=== PATIENT | male | born 1930 | race Caucasian/White ===

== ENCOUNTER 2017-02-02 07:31 | Inpatient (IN) | payer MEDICARE, BC ==
[~2017-02-02 07:31] MED LIST: Bupivacaine 0.5% 50 ML MDV ONE; Lidocaine 1% with EPINEPHrine 1:100,000 50 ML MDV ONE
[2017-02-02] MEDS ORDERED: ceFAZolin 2 GM in Premix Bag 1 BAG IV ONE (08:00)
[2017-02-02] MEDS ORDERED: fentaNYL 100 MCG/2 ML SDV ONE (08:46)
[2017-02-02] MEDS ORDERED: Midazolam 1 MG/ML 2 ML SDV ONE (08:46)
[2017-02-02] MEDS ORDERED: Propofol 200 MG/20 ML SDV ONE (08:46)
[2017-02-02] MEDS: Dextrose 5%-Lactated Ringers 1,000 ML IV SCH (08:51)
[2017-02-02] MEDS ORDERED: Ketorolac 60 MG/2 ML SDV ONE (09:55)
[2017-02-02] MEDS ORDERED: HYDROmorphone 2 MG Tab PO PRN (11:37)
[2017-02-02] MEDS ORDERED: Ondansetron 4 MG/2 ML SDV IVPUSH PRN (11:38)
[2017-02-02] MEDS ORDERED: Glucagon,Human Recombinant 1 MG Vial IM PRN (11:44)
[2017-02-02] MEDS ORDERED: 50% Dextrose in Water 50 ML Syringe IVPUSH PRN (11:44)
[2017-02-02] MEDS ORDERED: Glucose Gel 15 GM in 37.5 GM Tube PO PRN (11:44)
[2017-02-02] MEDS: traMADol 50 MG Tab PO SCH ×2 (13:53→19:41)
[2017-02-02] MEDS: Acetaminophen 325 MG Tab PO SCH ×2 (13:53→19:32)
[2017-02-02] MEDS: Oxybutynin 5 MG Tab PO SCH ×2 (13:53→21:00)
[2017-02-02] MEDS: Magnesium Sulfate/Water 2 GM in Premix Bag 1 BAG IV SCH ×2 (13:53→19:32)
[2017-02-02] MEDS: ceFAZolin 2 GM in Sodium Chloride 0.9% 50 ML IV SCH ×2 (16:09→23:36)
[2017-02-02] MEDS: Insulin Aspart 100 Units/ML 3 ML Pen SUBCUT PRN ×2 (16:22→21:01)
[2017-02-02] MEDS: Sucralfate 1 GM Tab PO SCH ×2 (16:24→19:32)
[2017-02-02] MEDS: metFORMIN 500 MG Tab PO SCH (16:24)
[2017-02-03] MEDS: traMADol 50 MG Tab PO SCH ×4 (01:44→20:13)
[2017-02-03] MEDS: Acetaminophen 325 MG Tab PO SCH ×4 (01:44→20:13)
[2017-02-03] MEDS: Magnesium Sulfate/Water 2 GM in Premix Bag 1 BAG IV SCH ×4 (01:45→20:14)
[2017-02-03] MEDS: ceFAZolin 2 GM in Sodium Chloride 0.9% 50 ML IV SCH (07:58)
[2017-02-03] MEDS: Pantoprazole 40 MG Tab.CR PO SCH (07:59)
[2017-02-03] MEDS: Sucralfate 1 GM Tab PO SCH ×4 (07:59→20:13)
[2017-02-03] MEDS: metFORMIN 500 MG Tab PO SCH ×2 (07:59→16:19)
[2017-02-03] MEDS ORDERED: Potassium Phosphates 15 MMOLE in Sodium Chloride 0.9% 150 ML IV SCH (09:00)
[2017-02-03] MEDS: Oxybutynin 5 MG Tab PO SCH ×3 (09:33→20:16)
[2017-02-03] MEDS: Mometasone Furoate Nasal Spray 17 GM Canister NASBOTH SCH (09:33)
[2017-02-03] MEDS: Enoxaparin 40 MG/0.4 ML Syringe SUBCUT SCH (09:33)
[2017-02-03] MEDS: Spironolactone 25 MG Tab PO SCH (09:33)
[2017-02-03] MEDS: Clopidogrel 75 MG Tab PO SCH (09:34)
[2017-02-03] MEDS: amLODIPine 5 MG Tab PO SCH (09:34)
[2017-02-03] MEDS: Potassium Phosphates 15 MMOLE in Sodium Chloride 0.9% 150 ML IV SCH ×3 (11:08→18:17)
[2017-02-03] MEDS: Insulin Aspart 100 Units/ML 3 ML Pen SUBCUT PRN (21:50)
[2017-02-03] MEDS ORDERED: Tamsulosin 0.4 MG Cap.ER PO ONE (21:58)
[2017-02-03] MEDS ORDERED: Lidocaine 2% Jelly 10 ML Urojet MUCMEM ONE (22:02)
[2017-02-04] MEDS: Magnesium Sulfate/Water 2 GM in Premix Bag 1 BAG IV SCH ×3 (01:52→13:46)
[2017-02-04] MEDS: traMADol 50 MG Tab PO SCH ×4 (01:52→19:32)
[2017-02-04] MEDS: Acetaminophen 325 MG Tab PO SCH ×4 (01:52→19:32)
[2017-02-04] MEDS: Dextrose 5%-Lactated Ringers 1,000 ML IV SCH (07:58)
[2017-02-04] MEDS: Pantoprazole 40 MG Tab.CR PO SCH (07:59)
[2017-02-04] MEDS: Sucralfate 1 GM Tab PO SCH ×4 (07:59→19:33)
[2017-02-04] MEDS: metFORMIN 500 MG Tab PO SCH ×2 (08:04→17:28)
[2017-02-04] MEDS: Spironolactone 25 MG Tab PO SCH (08:07)
[2017-02-04] MEDS: Mometasone Furoate Nasal Spray 17 GM Canister NASBOTH SCH (08:08)
[2017-02-04] MEDS: Tamsulosin 0.4 MG Cap.ER PO SCH ×2 (08:08→21:22)
[2017-02-04] MEDS: Clopidogrel 75 MG Tab PO SCH (08:09)
[2017-02-04] MEDS: amLODIPine 5 MG Tab PO SCH (08:09)
[2017-02-04] MEDS: Enoxaparin 40 MG/0.4 ML Syringe SUBCUT SCH (08:16)
--- NOTE | 2017-02-04 08:42 | PN ---
DATE OF SERVICE: 02/04/2017 The patient has been afebrile with stable vital signs. Blood sugar control has been good. The main problem was that of urinary retention. He is not able to avoid more than few milliliters at a time, and bladder scan showed a large residual postvoid volume. Ball catheter was inserted with around 600 mL of urine being retrieved, and the patient was given Flomax 0.4 mg last night. We will repeat that dose this morning as well as tonight and try getting the Ball out tomorrow morning. He does have a history of prostatism, having undergone a TURP in the past. Otherwise, he is eating reasonably well, and will maximize activity and work with pulmonary toilet. The incision looks clean. Richard Ordonez MD /[id number]
[2017-02-04] MEDS: Insulin Aspart 100 Units/ML 3 ML Pen SUBCUT PRN ×2 (17:20→21:27)
[2017-02-05] MEDS: Acetaminophen 325 MG Tab PO SCH ×4 (02:55→20:06)
[2017-02-05] MEDS: traMADol 50 MG Tab PO SCH ×4 (02:56→20:08)
[2017-02-05] MEDS ORDERED: Furosemide 20 MG Tab PO ONE (06:41)
[2017-02-05] MEDS ORDERED: Furosemide 40 MG Tab PO ONE (06:46)
[2017-02-05] MEDS ORDERED: Tamsulosin 0.4 MG Cap.ER PO ONE (06:47)
[2017-02-05] MEDS: Sucralfate 1 GM Tab PO SCH ×4 (07:23→20:07)
[2017-02-05] MEDS: Pantoprazole 40 MG Tab.CR PO SCH (07:23)
[2017-02-05] MEDS: metFORMIN 500 MG Tab PO SCH ×2 (08:03→17:08)
[2017-02-05] MEDS: Spironolactone 25 MG Tab PO SCH (08:04)
[2017-02-05] MEDS: amLODIPine 5 MG Tab PO SCH (08:05)
[2017-02-05] MEDS: Mometasone Furoate Nasal Spray 17 GM Canister NASBOTH SCH (08:05)
[2017-02-05] MEDS: Enoxaparin 40 MG/0.4 ML Syringe SUBCUT SCH (08:05)
[2017-02-05] MEDS: Clopidogrel 75 MG Tab PO SCH (08:06)
[2017-02-05] MEDS: Insulin Aspart 100 Units/ML 3 ML Pen SUBCUT PRN (08:19)
--- NOTE | 2017-02-05 08:27 | PN ---
DATE OF SERVICE: 02/03/2017 The patient has been afebrile with stable vital signs. He has been up and voiding fairly well. He is still requiring some more assistance. It might be good for him to be going home with. We will work on increasing mobility today. Potassium and phosphate are both markedly low. We will supplement those. Continue supplementing the potassium, which was quite low on admission. Iv will go to keep open today, and maximize activity and work with pulmonary toilet. Richard Ordonez MD /[id number]
--- NOTE | 2017-02-05 08:43 | OR ---
DATE OF PROCEDURE: 02/02/2017 PREOPERATIVE DIAGNOSIS: Recurrent right inguinal hernia with probable associated neuropathic pain. POSTOPERATIVE DIAGNOSES: 1. Recurrent incarcerated right inguinal hernia. 2. Incarcerated right femoral hernia. 3. 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 OPERATIVE PROCEDURE: 1. Repair of recurrent incarcerated right inguinal hernia with mesh (33425). 2. Repair of incarcerated right femoral hernia (15900). 3. Division of right ilioinguinal nerve (11640). 4. Division of genital branch of right genitofemoral nerve (83174). ANESTHESIA: Local plus IV sedation. CRAFT MANAGER: Patti Spence PA-C. INDICATIONS FOR PROCEDURE: This is an 86-year-old presenting with some episodes of quite severe pain associated with right inguinal area. On examination, the patient emerged to have a recurrence of right inguinal hernia. By history, there is some quite frivolous suggestive of some nerve entrapment problems he had previously repaired in the early 1960s and has some pain radiating to the right side of the scrotum as well as uppermost thigh suggestive of some nerve entrapment related to the previous repair. Plan will be to proceed with inguinal exploration of the right side with repair of hernias as indicated and we will also attempt to identify and divide the right ilioinguinal nerve and genital branch of genitofemoral nerves. Potential risks of the procedure including bleeding, infection, recurrence of the hernia, possible persistent pain postoperatively along with the remote possibility of cardiopulmonary, septic, or hemorrhagic complications leading to were discussed, and the patient wishes to proceed. DETAILS OF PROCEDURE: The patient was taken to the operating room where after IV sedation was administered, the abdomen and groin areas were prepped and draped. The right inguinal area was anesthetized with 1% lidocaine and mixed with Marcaine. Most of the previous quite long incision was then used over the right inguinal area. This was carried down through the skin and subcutaneous tissue. Upon dissection into the area the patient had cord structures placed in a position above the external oblique aponeurosis. As one dissected further, the patient was noted to have an indirect hernia which was incarcerated with some preperitoneal fat. Further dissection also revealed a femoral hernia, which also had some incarcerated fat within it. Upon dissection of the cord structures, quite a bit of dense scar was noted around the ilioinguinal nerve and also the genital branch of the genitofemoral nerve. Both those nerves were divided and excised to a point into the lateral most aspect of the incision and sent as pathologic specimens. The indirect hernia was then reduced with excision of small amount of the fat pad area. A medium plug was then placed in that defect and a [id number] stitch of 0 Vicryl stitch was placed holding the plug intact. The remainder of the inguinal floor was otherwise intact and appeared to be holding well. The femoral hernia was then reduced and a figure-of- eight stitch between the Scotty's ligament overlying the inguinal ligament was then accomplished with an 0 Vicryl stitch which appeared satisfactory and we then closed off the femoral hernia. At that point, no further problems were noted. The subcutaneous tissue was then approximated with some 4-0 Vicryl stitch and the skin with reina. Dressing was applied. The patient was taken to the recovery room in satisfactory condition. Physician administrative sales assistant, Patti Spence, played an essential role in assisting in this case, helping to retract structures as needed, positioning the patient as well as suturing and stapling when indicated. Her presence improved the patient's safety and decreased the operative time. Richard Ordonez MD /[id number]
[2017-02-06] MEDS: Acetaminophen 325 MG Tab PO SCH ×3 (02:00→08:09)
[2017-02-06] MEDS: traMADol 50 MG Tab PO SCH ×3 (02:00→08:12)
--- NOTE | 2017-02-06 03:43 | DISCH ---
ADMISSION DIAGNOSES: 1. Right inguinal hernia. 2. Atrial fibrillation. 3. Cerebral infarction. 4. Hypertension. 5. Hypercholesterolemia. 6. Diabetes mellitus. 7. Congestive heart failure. 8. Generalized weakness. 9. Transient ischemic attack. 10.Degenerative joint disease. 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 12.Benign prostatic hypertrophy, has had laser TURP. 13.Allergic rhinitis. 14.Urinary incontinence. DISCHARGE DIAGNOSIS: Repair of right inguinal hernia. Date of surgery is 02/02/2017. HISTORY: Nile Maya is an 86-year-old male with right inguinal hernia. After preoperative evaluation and discussion of possible risks and possible complications, he wished to proceed with surgical procedure. HOSPITAL COURSE: Nile had his surgery on 02/02/2017. He had no operative complications. On postop day #1, he was unable to void, a catheter was placed, and he was started on K- Phos. On 02/04/2017, he was changed to outpatient for urinary retention. Ball catheter remained and he was started on Flomax. Catheter was removed early Sunday morning at 04:00 a.m. On 02/05/2017, he has not voided yet at time of dictation. PHYSICAL EXAMINATION: VITAL SIGNS: Nile Maya is an 86-year-old male. VITAL SIGNS: Height is 5 feet 10 inches. Weight is 160 pounds. TPR 99.2, 72, 18. Blood pressure 151/70. HEENT: Negative. NECK: Supple. HEART: Regular rate and rhythm. LUNGS: Clear. ABDOMEN: Dressings dry and intact. Scrotal support is on. EXTREMITIES: Without peripheral edema. DISPOSITION: Discharged to home. CONDITION: Stable and improving. FOLLOWUP: Followup appointment with Richard Ordonez M.D. on 02/14/2017 at 9:15 a.m. MEDICATIONS: New prescriptions: 1. Flomax 0.4 mg p.o. daily #30. 2. Tramadol 50 mg q.6 hours p.r.n. pain #40. Home medications: Continue the same. 1. Plavix 75 mg oral daily. 2. Ferrous sulfate 325 mg oral daily. 3. Flonase 2 sprays in each nostril daily. 4. Nasonex spray one spray twice daily. 5. Multivitamin one tablet daily. 6. Omeprazole 40 mg oral daily. 7. Oxybutynin 5 mg oral daily. 8. Sennalax-S 2 tablets daily. 9. Spironolactone 12.5 mg oral daily. 10.Carafate 1000 mg oral 4 times daily. 11.Norvasc 5 mg oral daily. 12.Lipitor 40 mg oral one time. 13.Metformin 1000 mg oral twice daily. 14.Metronidazole 0.75% gel one topical twice daily. DIET: After discharge, drink 8 to 10 glasses of water a day. Diabetic diet. ACTIVITY: As tolerated. No lifting greater than 10 pounds for 6 weeks. Shower bathing, may shower. Notify provider if any fever, increased pain, nausea, vomiting. Wound incision care, keep site clean and dry. Wear athletic supporter until next appointment.
[2017-02-06] MEDS: Sucralfate 1 GM Tab PO SCH ×2 (08:08→11:34)
[2017-02-06] MEDS: metFORMIN 500 MG Tab PO SCH (08:09)
[2017-02-06] MEDS: Pantoprazole 40 MG Tab.CR PO SCH (08:09)
[2017-02-06] MEDS: amLODIPine 5 MG Tab PO SCH (08:24)
[2017-02-06] MEDS: Mometasone Furoate Nasal Spray 17 GM Canister NASBOTH SCH (08:25)
[2017-02-06] MEDS: Spironolactone 25 MG Tab PO SCH (08:25)
[2017-02-06] MEDS: Enoxaparin 40 MG/0.4 ML Syringe SUBCUT SCH (08:25)
[2017-02-06] MEDS: Clopidogrel 75 MG Tab PO SCH (08:26)
[2017-02-06 10:50] VITALS: BP 143/84
--- NOTE | 2017-02-07 01:40 | DISCH ---
ADDENDUM: After appropriate evaluation and discussion with Mrs. Maya, Nile will be discharged to [facility]. He is voiding. He did have a fall last night. Richard Ordonez MD was notified. Per nursing staff, there is a small skin abrasion between his shoulder blades. Remainder of review of systems negative for any pertinent positives and negatives. OBJECTIVE: GENERAL: Nile Maya is an 86-year-old male. He is alert and orientated. VITAL SIGNS: Height 5 feet 10 inches. Weight is 160 pounds. TPR 98.4, 81, 16. Blood pressure 112/51. Oral intake 880, output 750. Last BM 02/05/2017. HEENT: Negative. NECK: Supple. HEART: Regular rate and rhythm. LUNGS: Clear. ABDOMEN: Soft, nontender. Incision in the right groin area, reina intact. EXTREMITIES: Without peripheral edema. ASSESSMENT: Repair of right inguinal hernia, date of surgery 02/02/2017. PLAN: To return to the clinic for postoperative followup appointment with DYANA Ndiaye on 02/12/2017 at 10:00 a.m.
--- NOTE | 2017-03-04 17:10 | PN ---
DATE OF SERVICE: 02/05/2017 Mr. Maya had his Ball catheter pulled this morning, and we will see if he is able to void. If he is not able to void, we will reinsert the Ball catheter at that time, and he may be able to go home with the catheter in for a few days. This has happened with previous anesthetics. Otherwise, he is eating well and moving around nicely, and incision is clean. He probably will be discharged home tomorrow. Richard Ordonez MD /[id number]
== END 2017-02-06 13:10 | disposition home health service (06) | DRG 351 ==
LOC: JP.MS 07:31 → JP.SDS 07:32 → EDSTATUS 10:15 → JP.MS 10:30
PROVIDERS: ADMIT Surgery; ATTEND Surgery
PROC: 0YQ70ZZ Repair Right Femoral Region, Open Approach (ICD-10-PCS; principal; 2017-02-02)
PROC: 0YQ50ZZ Repair Right Inguinal Region, Open Approach (ICD-10-PCS; principal; 2017-02-02)
PROC: 0YU50JZ Supplement Right Inguinal Region with Synthetic Substitute, Open Approach (ICD-10-PCS; principal; 2017-02-02)
PROC: 018 Peripheral Nervous System, Division (ICD-10-PCS; principal; 2017-02-02)
PROC: 018B0ZZ Division of Lumbar Nerve, Open Approach (ICD-10-PCS; principal; 2017-02-02)
DX: K40.91 Unilateral inguinal hernia, without obstruction or gangrene, recurrent (principal); K41.30 Unilateral femoral hernia, with obstruction, without gangrene, not specified as recurrent; K40.30 Unilateral inguinal hernia, with obstruction, without gangrene, not specified as recurrent; G57.81 Other specified mononeuropathies of right lower limb; G58.8 Other specified mononeuropathies; E11.9 Type 2 diabetes mellitus without complications; Z79.84 Long term (current) use of oral hypoglycemic drugs; K21.9 Gastro-esophageal reflux disease without esophagitis; Z86.73 Personal history of transient ischemic attack (TIA), and cerebral infarction without residual deficits; J30.9 Allergic rhinitis, unspecified; E78.00 Pure hypercholesterolemia, unspecified; I10 Essential (primary) hypertension; R33.9 Retention of urine, unspecified; N40.1 Benign prostatic hyperplasia with lower urinary tract symptoms; N39.498 Other specified urinary incontinence; Z86.79 Personal history of other diseases of the circulatory system; M19.90 Unspecified osteoarthritis, unspecified site
CPT/HCPCS: 36415; 51798; 80048; 80053; 82962; 83735; 83880; 84100; 85027; 88302; 93005; 94762; A9270-GY; C1781; J0690; J1650; J1885; J2250; J2704; J3010; J3475; J3490; J7040; J7042; J7050

== ENCOUNTER 2017-08-09 15:58 | Emergency (ER) | payer MEDICARE, BC ==
[2017-08-09] MEDS ORDERED: Acetaminophen/Codeine 300-30 MG Tab PO ONE (16:58)
--- NOTE | 2017-08-09 17:00 | EDM.PDOC ---
ED HPI GENERAL MEDICAL PROBLEM - General Chief Complaint: Back Pain or Injury Stated Complaint: BACK PAIN VIA NORTH Time Seen by Provider: 08/09/17 16:45 Source of Information: Reports: Patient, EMS, Family History Limitations: Reports: No Limitations - History of Present Illness INITIAL COMMENTS - FREE TEXT/NARRATIVE: 87-year-old male with chronic back pain has had an increased exacerbation of pain over the past several days. Today he was in so much discomfort he couldn't even walk so his called the ambulance. He is very sensitive to narcotic type medications apparently, he was not given anything by EMS. Now as he is lying still on the exam table he is comfortable. No weakness or paresthesias of the lower extremities, no incontinence. No recent falls. Onset: Unknown/Unsure Quality: Reports: Burning, Sharp, Stabbing Severity: Moderate Associated Symptoms: Reports: Confusion (Tends to get confusion with pain medication). Denies: Fever/Chills - Related Data Allergies Allergy/AdvReac Type Severity Reaction Status Date / Time moxifloxacin Allergy Cannot Verified 02/02/17 08:10 Remember Home Meds: Home Meds Multivitamin [Multi-Vitamin Daily] 1 tab PO DAILY 12/04/14 [History] Oxybutynin 5 mg PO DAILY 12/04/14 [History] Sucralfate [Carafate] 1,000 mg PO QID 12/04/14 [History] metFORMIN [Glucophage] 1,000 mg PO BID 12/04/14 [History] Ferrous Sulfate [Feosol] 325 mg PO DAILY 01/31/17 [History] Fluticasone Propionate [Flonase] 2 spray NASBOTH DAILY 01/31/17 [History] Omeprazole 20 mg PO DAILY 01/31/17 [History] Spironolactone [Aldactone] 12.5 mg PO DAILY 01/31/17 [History] amLODIPine [Norvasc] 5 mg PO DAILY 01/31/17 [History] atorvaSTATin [Lipitor] 40 mg PO ONETIME 01/31/17 [History] Aspirin [Ecotrin] 1 tab PO DAILY 08/09/17 [History] Menthol/Methyl Salicylate [Pain Relieving Rub Cream] 1 applic TOP QID 08/09/17 [ History] Past Medical History HEENT History: Reports: Hard of Hearing Cardiovascular History: Reports: Afib, Arrhythmia, Heart Failure, High Cholesterol, Hypertension Gastrointestinal History: Reports: Chronic Constipation, GERD, PUD Genitourinary History: Reports: BPH Musculoskeletal History: Reports: Back Pain, Chronic, Osteoporosis, Other (See Below) Other Musculoskeletal History: shots in knees Neurological History: Reports: Concussion, Neuropathy, Peripheral, TIA Psychiatric History: Reports: Dementia Endocrine/Metabolic History: Reports: Diabetes, Type II Hematologic History: Reports: Blood Transfusion(s) Oncologic (Cancer) History: Reports: Prostate - Infectious Disease History Infectious Disease History: Reports: Chicken Pox, Measles, Mumps - Past Surgical History HEENT Surgical History: Reports: Eye Surgery GI Surgical History: Reports: Colonoscopy, Hernia Repair/Other Other GI Surgeries/Procedures: january 2017 hernia repair Male Surgical History: Reports: TURP-Transurethral Resection of Prostate, Other (See Below) Social & Family History - Tobacco Use Smoking Status *Q: Never Smoker Second Hand Smoke Exposure: No - Caffeine Use Caffeine Use: Reports: Coffee - Recreational Drug Use Recreational Drug Use: No ED ROS GENERAL - Review of Systems Review Of Systems: See Below Constitutional: Denies: Fever, Chills Respiratory: Denies: Shortness of Breath Cardiovascular: Denies: Chest Pain GI/Abdominal: Denies: Nausea, Vomiting : Reports: No Symptoms Neurological: Denies: Paresthesia ED EXAM,LOWER BACK PAIN/INJURY - Physical Exam Exam: See Below Exam Limited By: No Limitations General Appearance: Alert, No Apparent Distress Respiratory/Chest: No Respiratory Distress, Lungs Clear Back Exam: Vertebral Tenderness (Tender to percussion over the very lower lumbar spine, L3 to the sacral area). No: CVA Tenderness (R), CVA Tenderness (L ) Extremities: Normal Inspection Course - Vital Signs Last Recorded V/S: Last Vital Signs Temp 97.1 F 08/09/17 16:39 Pulse 72 08/09/17 18:00 Resp 14 08/09/17 18:00 BP 150/91 H 08/09/17 18:00 Pulse Ox 96 08/09/17 18:00 - Orders/Labs/Meds Meds: Medications Discontinued Medications Generic Name Dose Route Start Last Admin Trade Name Freq PRN Reason Stop Dose Admin Acetaminophen/Codeine Phosphate 1 tab 08/09/17 16:58 08/09/17 17:07 Tylenol With Codeine No.3 300mg/30mg PO 08/09/17 16:59 1 tab ONETIME ONE Administration - Re-Assessments/Exams Free Text/Narrative Re-Assessment/Exam: 08/09/17 18:26 Patient was given one dose of Tylenol 3, waited a half hour and then didn't LS spine series. He has some significant arthritis with spurring but no fracture. There is some L3-L4 spondylolisthesis. Patient felt much better after the Tylenol 3, he'll be discharged with 15 additional doses to take one half to one pill every 6-8 hours. A copy of his x-ray was given and [facility] if not improving satisfactorily. Departure - Departure Time of Disposition: 19:11 Disposition: Home, Self-Care 01 Condition: Fair Clinical Impression: Acute exacerbation of chronic low back pain - Discharge Information Instructions: Back Pain, Adult, [id number] Referrals: Jimy Jackman MD [Primary Care Provider] - Forms: ED Department Discharge Care Plan Goals: Try the pain medication as directed for the next several days. Recheck early next week if not improving satisfactorily, or return to the emergency room if worsening or you develop other concerns.
[2017-08-09 19:17] VITALS: BP 150/91
--- NOTE | 2017-08-10 09:17 | CR ---
Lumbar Spine 2 or 3V INDICATION: low back pain FINDINGS: Comparison 12/04/2014. 5 lumbar type vertebral bodies. Moderate degenerative disc space narro wing and endplate hypertrophic change at L2-3 and L3-4, and mild degenerative disc space narrowing at L5-S1. Mild retrolisthesis of L2 on L3 and L3 on L4. Moderate degenerative arthritis lower lumbar fa cet joints. There has been mild progression of degenerative change since prior exam.
== END 2017-08-09 19:03 | disposition home or self-care (01) ==
LOC: JP.ED 15:58
DX: G89.29 Other chronic pain (principal); M54.5 Low back pain; I11.0 Hypertensive heart disease with heart failure; I50.9 Heart failure, unspecified; E11.40 Type 2 diabetes mellitus with diabetic neuropathy, unspecified; I48.91 Unspecified atrial fibrillation; M81.0 Age-related osteoporosis without current pathological fracture; Z88.1 Allergy status to other antibiotic agents; Z79.84 Long term (current) use of oral hypoglycemic drugs; Z79.82 Long term (current) use of aspirin; Z79.899 Other long term (current) drug therapy
CPT/HCPCS: 72100; 99284; A9270; 99283

== ENCOUNTER 2018-06-17 13:55 | Inpatient (IN) | payer MEDICARE, BC ==
[2018-06-17] MEDS ORDERED: Sodium Chloride 0.9% 10 ML Syringe FLUSH PRN (15:27)
[2018-06-17] MEDS ORDERED: Lactated Ringers 1,000 ML IV SCH (15:30)
--- NOTE | 2018-06-17 15:33 | EDM.PDOC ---
ED HPI GENERAL MEDICAL PROBLEM - General Chief Complaint: General Stated Complaint: SORES BUTTOCKS,WEAKNESS/LEGS Time Seen by Provider: 06/17/18 15:14 Source of Information: Reports: Patient, Family, RN Notes Reviewed History Limitations: Reports: No Limitations - History of Present Illness INITIAL COMMENTS - FREE TEXT/NARRATIVE: 88-year-old gentleman presents to the emergency department today with increasing weakness. Patient has known history of hypertension, atrial fibrillation diabetes mellitus type 2 as well as severe torticollis, was in the [facility] rehabilitation facility in [place] discharged to home and of May. Presents today with his spouse saying he has increasing weakness difficulty ambulating and she is unable to care for him at home. He has no specific complaints Sacral Pain Score (Numeric/FACES): 5 - Related Data Allergies Allergy/AdvReac Type Severity Reaction Status Date / Time moxifloxacin Allergy Cannot Verified 02/02/17 08:10 Remember Home Meds: Home Meds Multivitamin [Multi-Vitamin Daily] 1 tab PO DAILY 12/04/14 [History] Oxybutynin 5 mg PO DAILY 12/04/14 [History] Sucralfate [Carafate] 1,000 mg PO QID 12/04/14 [History] metFORMIN [Glucophage] 1,000 mg PO BID 12/04/14 [History] Ferrous Sulfate [Feosol] 325 mg PO DAILY 01/31/17 [History] Omeprazole 20 mg PO DAILY 01/31/17 [History] Spironolactone [Aldactone] 12.5 mg PO DAILY 01/31/17 [History] amLODIPine [Norvasc] 10 mg PO DAILY 01/31/17 [History] atorvaSTATin [Lipitor] 80 mg PO ONETIME 01/31/17 [History] Aspirin [Ecotrin] 1 tab PO DAILY 08/09/17 [History] Menthol/Methyl Salicylate [Pain Relieving Rub Cream] 1 applic TOP QID 08/09/17 [ History] Acetaminophen 325 mg PO BID PRN 06/17/18 [History] Dextran 70/Hypromellose [Artificial Tears] 1 drop EYEBOTH BID 06/17/18 [History] Mometasone Furoate [Nasonex] 2 spray VESTA BID 06/17/18 [History] OLANZapine [Olanzapine] 2.5 mg PO BEDTIME 06/17/18 [History] Sennosides/Docusate Sodium [Sennosides-Docusate Sodium] 2 tab PO DAILY 06/17/18 [History] Terbinafine [LamISIL AT 1% Crm] 1 applic TOP DAILY 06/17/18 [History] Past Medical History HEENT History: Reports: Hard of Hearing Cardiovascular History: Reports: Afib, Arrhythmia, Heart Failure, High Cholesterol, Hypertension Gastrointestinal History: Reports: Chronic Constipation, GERD, PUD Genitourinary History: Reports: BPH Musculoskeletal History: Reports: Back Pain, Chronic, Osteoporosis, Other (See Below) Other Musculoskeletal History: shots in knees Neurological History: Reports: Concussion, Neuropathy, Peripheral, TIA Psychiatric History: Reports: Dementia Endocrine/Metabolic History: Reports: Diabetes, Type II Hematologic History: Reports: Blood Transfusion(s) Oncologic (Cancer) History: Reports: Prostate - Infectious Disease History Infectious Disease History: Reports: Chicken Pox, Measles, Mumps - Past Surgical History HEENT Surgical History: Reports: Eye Surgery GI Surgical History: Reports: Colonoscopy, Hernia Repair/Other Other GI Surgeries/Procedures: january 2017 hernia repair Male Surgical History: Reports: TURP-Transurethral Resection of Prostate, Other (See Below) Social & Family History - Tobacco Use Smoking Status *Q: Never Smoker - Caffeine Use Caffeine Use: Reports: Coffee - Recreational Drug Use Recreational Drug Use: No ED ROS GENERAL - Review of Systems Review Of Systems: See Below Constitutional: Reports: Weakness, Fatigue HEENT: Reports: No Symptoms Respiratory: Reports: No Symptoms Cardiovascular: Reports: No Symptoms GI/Abdominal: Reports: No Symptoms : Reports: No Symptoms Musculoskeletal: Reports: No Symptoms Skin: Reports: Wound Neurological: Reports: Difficulty Walking, Weakness Psychiatric: Reports: Hallucinations (Seeing rats in his bed) ED EXAM, GENERAL - Physical Exam Exam: See Below Free Text/Narrative:: General: Male, not in any distress, alert HEENT: head is atraumatic normocephalic, eyes pupils equal round reactive to light, sclera clear no conjunctivitis appreciated. Nose no septal deviation, nares are clear, no blood present. Mouth mucosa is moist and pink no erythema or exudate noted in soft palate, tongue is midline uvula is midline, dentition is intact. Neck: Supple no thyromegaly no tracheal deviation. Severe torticollis to the right Nodes: Cervical nodes subclavicular nodes nontender no palpable lymphadenopathy noted. Lungs: clear to auscultation bilaterally with symmetrical respirations, no adventitious noise appreciated. CV: Regular rate and rhythm S1 and S2 appreciated no murmurs rubs or gallops noted. Abdomen: Soft, nontender, no palpable masses or organomegaly appreciated, no distention no guarding bowel sounds are present, Neuro: Cranial nerves II through XII grossly intact Skin: Grade 1 and 2 decubitus ulcers are appreciated on the gluteus jose c right and left respectively Extremities: +1 pitting edema bilateral, pedal pulse is +2. Course - Vital Signs Last Recorded V/S: Last Vital Signs Temp 96.9 F 06/17/18 14:33 Pulse 45 L 06/17/18 15:49 Resp 18 06/17/18 14:33 BP 135/64 06/17/18 15:49 Pulse Ox 90 L 06/17/18 15:49 - Orders/Labs/Meds Orders: Active Orders 24 hr Category Date Time Status Peripheral IV Care [RC] . DIRECTED Care 06/17/18 15:28 Active Chest 1V Frontal [CR] Urgent Exams 06/17/18 15:27 Taken Lactated Ringers [Ringers, Lactated] 1,000 ml Med 06/17/18 15:30 Active IV ASDIRECTED Sodium Chloride 0.9% [Saline Flush] Med 06/17/18 15:27 Active 10 ml FLUSH ASDIRECTED PRN Peripheral IV Insertion Adult [OM.PC] Urgent Oth 06/17/18 15:27 Ordered Medication Orders Lactated Ringer's (Ringers, Lactated) 1,000 mls @ 500 mls/hr IV ASDIRECTED ELLIOT Last Admin: 06/17/18 15:41 Dose: 125 mls/hr Sodium Chloride (Saline Flush) 10 ml FLUSH ASDIRECTED PRN PRN Reason: Keep Vein Open Last Admin: 06/17/18 15:42 Dose: 10 ml Labs: Laboratory Tests 06/17/18 06/17/18 06/17/18 Range/Units 15:41 15:41 15:41 WBC 7.2 (4.5-11.0) K/uL RBC 3.84 L (4.30-5.90) M/uL Hgb 11.4 L (12.0-15.0) g/dL Hct 36.1 L (40.0-54.0) % MCV 94 (80-98) fL MCH 30 (27-31) pg MCHC 32 (32-36) % Plt Count 272 (150-400) K/uL Neut % (Auto) 68 H (36-66) % Lymph % (Auto) 21 L (24-44) % Wright % (Auto) 8 H (2-6) % Eos % (Auto) 3 (2-4) % Baso % (Auto) 0 (0-1) % Sodium 143 (140-148) mmol/L Potassium 4.4 (3.6-5.2) mmol/L Chloride 109 H (100-108) mmol/L Carbon Dioxide 23 (21-32) mmol/L Anion Gap 15.4 H (5.0-14.0) mmol/L BUN 30 H D (7-18) mg/dL Creatinine 2.0 H (0.8-1.3) mg/dL Est Cr Clr Drug Dosing TNP Estimated GFR (MDRD) 32 L (>60) Glucose 114 H (74-106) mg/dL Lactic Acid 3.7 H (0.4-2.0) mmol/L Calcium 9.1 D (8.5-10.1) mg/dL Total Bilirubin 0.3 D (0.2-1.0) mg/dL AST 17 (15-37) U/L ALT 29 (12-78) U/L Alkaline Phosphatase 68 (46-116) U/L Troponin I < 0.017 (0.000-0.056) ng/mL Total Protein 5.9 L (6.4-8.2) g/dL Albumin 2.8 L (3.4-5.0) g/dL Globulin 3.1 (2.3-3.5) g/dL Albumin/Globulin Ratio 0.9 L (1.2-2.2) Urine Color Urine Appearance Urine pH (4.5-8.0) Ur Specific [place] (1.008-1.030) Urine Protein (NEGATIVE) mg/dL Urine Glucose (UA) (NEGATIVE) mg/dL Urine Ketones (NEGATIVE) mg/dL Urine Occult Blood (NEGATIVE) Urine Nitrite (NEGAITVE) Urine Bilirubin (NEGATIVE) Urine Urobilinogen (NORMAL) mg/dL Ur Leukocyte Esterase (NEGATIVE) Urine RBC (0-5) Urine WBC (0-5) Ur Epithelial Cells Amorphous Sediment Urine Bacteria Urine Mucus 06/17/18 Range/Units 17:49 WBC (4.5-11.0) K/uL RBC (4.30-5.90) M/uL Hgb (12.0-15.0) g/dL Hct (40.0-54.0) % MCV (80-98) fL MCH (27-31) pg MCHC (32-36) % Plt Count (150-400) K/uL Neut % (Auto) (36-66) % Lymph % (Auto) (24-44) % Wright % (Auto) (2-6) % Eos % (Auto) (2-4) % Baso % (Auto) (0-1) % Sodium (140-148) mmol/L Potassium (3.6-5.2) mmol/L Chloride (100-108) mmol/L Carbon Dioxide (21-32) mmol/L Anion Gap (5.0-14.0) mmol/L BUN (7-18) mg/dL Creatinine (0.8-1.3) mg/dL Est Cr Clr Drug Dosing Estimated GFR (MDRD) (>60) Glucose (74-106) mg/dL Lactic Acid (0.4-2.0) mmol/L Calcium (8.5-10.1) mg/dL Total Bilirubin (0.2-1.0) mg/dL AST (15-37) U/L ALT (12-78) U/L Alkaline Phosphatase (46-116) U/L Troponin I (0.000-0.056) ng/mL Total Protein (6.4-8.2) g/dL Albumin (3.4-5.0) g/dL Globulin (2.3-3.5) g/dL Albumin/Globulin Ratio (1.2-2.2) Urine Color Yellow Urine Appearance Clear Urine pH 5.0 (4.5-8.0) Ur Specific [place] 1.020 (1.008-1.030) Urine Protein Negative (NEGATIVE) mg/dL Urine Glucose (UA) Normal (NEGATIVE) mg/dL Urine Ketones Negative (NEGATIVE) mg/dL Urine Occult Blood Negative (NEGATIVE) Urine Nitrite Negative (NEGAITVE) Urine Bilirubin Small (NEGATIVE) Urine Urobilinogen Normal (NORMAL) mg/dL Ur Leukocyte Esterase Negative (NEGATIVE) Urine RBC 0-5 (0-5) Urine WBC 0-5 (0-5) Ur Epithelial Cells Rare Amorphous Sediment Few Urine Bacteria Rare Urine Mucus Few Meds: Medications Generic Name Dose Route Start Last Admin Trade Name Freq PRN Reason Stop Dose Admin Lactated Ringer's 1,000 mls @ 500 mls/hr 06/17/18 15:30 06/17/18 15:41 Ringers, Lactated IV 125 mls/hr ASDIRECTED ELLIOT Administration Sodium Chloride 10 ml 06/17/18 15:27 06/17/18 15:42 Saline Flush FLUSH 10 ml ASDIRECTED PRN Administration Keep Vein Open Discontinued Medications Generic Name Dose Route Start Last Admin Trade Name Freq PRN Reason Stop Dose Admin Lidocaine HCl Confirm 06/17/18 17:24 Xylocaine 2% Jelly Administered 06/17/18 17:25 Dose 10 ml .ROUTE .STK-MED ONE Departure - Departure Time of Disposition: 18:14 Disposition: Admitted As Inpatient 67 Condition: Poor Clinical Impression: Weakness, Hallucinations - Discharge Information Referrals: Jimy Jackman MD [Primary Care Provider] - Forms: ED Department Discharge - My Orders Last 24 Hours: My Active Orders 06/17/18 15:27 Chest 1V Frontal [CR] Urgent Sodium Chloride 0.9% [Saline Flush] 10 ml FLUSH ASDIRECTED PRN Peripheral IV Insertion Adult [OM.PC] Urgent 06/17/18 15:28 Peripheral IV Care [RC] . DIRECTED 06/17/18 15:30 Lactated Ringers [Ringers, Lactated] 1,000 ml IV ASDIRECTED - Assessment/Plan Last 24 Hours: My Active Orders 06/17/18 15:27 Chest 1V Frontal [CR] Urgent Sodium Chloride 0.9% [Saline Flush] 10 ml FLUSH ASDIRECTED PRN Peripheral IV Insertion Adult [OM.PC] Urgent 06/17/18 15:28 Peripheral IV Care [RC] . DIRECTED 06/17/18 15:30 Lactated Ringers [Ringers, Lactated] 1,000 ml IV ASDIRECTED Plan: Assessment Acuity = acute Site and laterality = weakness complicated patient with history of dementia with hallucinations Etiology = probable underlying progressive of disease Manifestations = none Location of injury = Home Lab values = hemoglobin low 11.4 consistent normochromic anemia, creatinine elevated at 2.0 consistent chronic renal failure stage G IIIB, lactic acid elevated at 3.7 of uncertain significance, troponin was negative albumin low at 2.8 consistent hypoalbuminemia Plan Called discussed case with hospitalist on-call they agreed to come and evaluate the patient emergency department for admission This note was dictated using [employer] voice recognition software please call with any questions on syntax or grammar.
[2018-06-17] MEDS ORDERED: Lidocaine 2% Jelly 10 ML Urojet MUCMEM ONE (17:00)
[2018-06-17] MEDS ORDERED: Lidocaine 2% Jelly 10 ML Urojet ONE (17:24)
[2018-06-17] MEDS ORDERED: Ondansetron 4 MG Tab.DIS PO PRN (19:24)
[2018-06-17] MEDS ORDERED: Albuterol/Ipratropium 3.0-0.5 MG/3 ML Neb Soln NEB PRN (19:24)
[2018-06-17] MEDS ORDERED: Morphine 2 MG/ML Syringe IVPUSH PRN (19:24)
[2018-06-17] MEDS ORDERED: Albuterol 0.083% 2.5 MG/3 ML Neb Soln NEB PRN (19:24)
[2018-06-17] MEDS ORDERED: Ondansetron 4 MG/2 ML SDV IV PRN (19:24)
[2018-06-17] MEDS ORDERED: oxyCODONE 5 MG Tab PO PRN (19:24)
[2018-06-17] MEDS ORDERED: LORazepam 2 MG/ML SDV IV PRN (19:24)
[2018-06-17] MEDS ORDERED: Acetaminophen 325 MG Tab PO PRN (19:24)
[2018-06-17] MEDS ORDERED: Docusate Sodium 100 MG Cap PO PRN (19:24)
[2018-06-17] MEDS ORDERED: Bisacodyl 5 MG Tab PO PRN (19:24)
[2018-06-17] MEDS ORDERED: Melatonin 3 MG Tab PO PRN (19:24)
--- NOTE | 2018-06-17 19:48 | PCM.HP ---
H&P History of Present Illness - General Date of Service: 06/17/18 Admit Problem/Dx: Admission Diagnosis/Problem Admission Diagnosis/Problem Dementia Source of Information: Patient, Half-Way Records, Provider, RN History Limitations: Reports: No Limitations - History of Present Illness Initial Comments - Free Text/Narative: 88-year-old gentleman presents to the emergency department today with increasing weakness. Patient has known history of hypertension, atrial fibrillation diabetes mellitus type 2 as well as severe torticollis, was in the [facility] rehabilitation facility in [place] discharged to home on . Presents today with his spouse saying he has increasing weakness difficulty ambulating and she is unable to care for him at home. He has no specific complaints Lab values = hemoglobin low 11.4 consistent normochromic anemia, creatinine elevated at 2.0 consistent chronic renal failure stage G IIIB, lactic acid elevated at 3.7 of uncertain significance, troponin was negative albumin low at 2.8 consistent hypoalbuminemia Plan Called discussed case with hospitalist on-call they agreed to come and evaluate the patient emergency department for admission Onset of Symptoms: Reports: Gradual Duration of Symptoms: Reports: Week(s):, Getting Worse Location: Reports: Generalized (weakness, able to stand and take two steps) Improves with: Reports: Rest Worsens with: Reports: None Associated Symptoms: Reports: Confusion (chronic, history of demenia wiht hallucination), Weakness Sacral Pain Score (Numeric/FACES): 5 - Related Data Allergies/Adverse Reactions: Allergies Allergy/AdvReac Type Severity Reaction Status Date / Time moxifloxacin Allergy Cannot Verified 02/02/17 08:10 Remember Home Medications: Home Meds Multivitamin [Multi-Vitamin Daily] 1 tab PO DAILY 12/04/14 [History] Oxybutynin 5 mg PO DAILY 12/04/14 [History] Sucralfate [Carafate] 1,000 mg PO QID 12/04/14 [History] metFORMIN [Glucophage] 1,000 mg PO BID 12/04/14 [History] Ferrous Sulfate [Feosol] 325 mg PO DAILY 01/31/17 [History] Omeprazole 20 mg PO DAILY 01/31/17 [History] Spironolactone [Aldactone] 12.5 mg PO DAILY 01/31/17 [History] amLODIPine [Norvasc] 10 mg PO DAILY 01/31/17 [History] atorvaSTATin [Lipitor] 80 mg PO ONETIME 01/31/17 [History] Aspirin [Ecotrin] 1 tab PO DAILY 08/09/17 [History] Menthol/Methyl Salicylate [Pain Relieving Rub Cream] 1 applic TOP QID 08/09/17 [ History] Acetaminophen 325 mg PO BID PRN 06/17/18 [History] Dextran 70/Hypromellose [Artificial Tears] 1 drop EYEBOTH BID 06/17/18 [History] Mometasone Furoate [Nasonex] 2 spray VESTA BID 06/17/18 [History] OLANZapine [Olanzapine] 2.5 mg PO BEDTIME 06/17/18 [History] Sennosides/Docusate Sodium [Sennosides-Docusate Sodium] 2 tab PO DAILY 06/17/18 [History] Terbinafine [LamISIL AT 1% Crm] 1 applic TOP DAILY 06/17/18 [History] Past Medical History HEENT History: Reports: Hard of Hearing Cardiovascular History: Reports: Afib, Arrhythmia, Heart Failure, High Cholesterol, Hypertension Gastrointestinal History: Reports: Chronic Constipation, GERD, PUD Genitourinary History: Reports: BPH Musculoskeletal History: Reports: Back Pain, Chronic, Osteoporosis, Other (See Below) Other Musculoskeletal History: shots in knees Neurological History: Reports: Concussion, Neuropathy, Peripheral, TIA Psychiatric History: Reports: Dementia Endocrine/Metabolic History: Reports: Diabetes, Type II Hematologic History: Reports: Blood Transfusion(s) Oncologic (Cancer) History: Reports: Prostate - Infectious Disease History Infectious Disease History: Reports: Chicken Pox, Measles, Mumps - Past Surgical History HEENT Surgical History: Reports: Eye Surgery GI Surgical History: Reports: Colonoscopy, Hernia Repair/Other Other GI Surgeries/Procedures: january 2017 hernia repair Male Surgical History: Reports: TURP-Transurethral Resection of Prostate, Other (See Below) Social & Family History - Tobacco Use Smoking Status *Q: Never Smoker - Caffeine Use Caffeine Use: Reports: Coffee - Recreational Drug Use Recreational Drug Use: No - Living Situation & Occupation Living situation: Reports: Occupation: Retired (lives with in [place], [place].) H&P Review of Systems - Review of Systems: Review Of Systems: See Below General: Reports: Weakness, Fatigue HEENT: Reports: Glasses, Other (natural teeth with partial) Pulmonary: Reports: No Symptoms Cardiovascular: Reports: No Symptoms Gastrointestinal: Reports: No Symptoms, Other (last bowel movement 2 days ago) Genitourinary: Reports: Incontinence (mcclendon cath) Musculoskeletal: Reports: No Symptoms Skin: Reports: Other (fragil skin, dermatitis to scalp, Mr. Maya reports skin sore on buttocks.) Psychiatric: Reports: Hallucinations (Visual) (reports "rats crawling on his skin" hx of [place] [employer], exposed to rats on skin) Neurological: Reports: Pre-Existing Deficit, Difficulty Walking (able to stand and take two steps), Weakness Hematologic/Lymphatic: Reports: No Symptoms Immunologic: Reports: No Symptoms Exam - Exam Exam: See Below - Vital Signs Vital Signs: Last Vital Signs Temp 36.1 C 06/17/18 14:33 Pulse 45 L 06/17/18 15:49 Resp 18 06/17/18 14:33 BP 135/64 06/17/18 15:49 Pulse Ox 90 L 06/17/18 15:49 Weight: 83.007 kg - Exam Quality Assessment: Urinary Catheter, Skin Breakdown General: Alert, Cooperative HEENT: PERRLA, Conjunctiva Clear, EOMI, Hearing Intact, Pupils Equal, Glasses, Other (mouth dry) Neck: Other (severe kyphoscoliosis) Lungs: Clear to Auscultation, Decreased Breath Sounds Cardiovascular: Irregular Rhythm GI/Abdominal Exam: Normal Bowel Sounds, Soft, Non-Tender, No Distention (Male) Exam: No Hernia, Normal Inspection Extremities: Pedal Edema (1+), Slow Capillary Refill, Limited Range of Motion, Other (bilateral lower legs cool to touch, Mr. Maya reports "poor circulation ") Skin: Warm, Dry, Rash, Decubitis (right and left buttocks, applied duoderm foam pad) Neurological: Normal Speech, Normal Tone Neuro Extensive - Mental Status: Alert, Normal Mood/Affect Neuro Extensive - Motor, Sensory, Reflexes: Motor/Sensory Deficits Psychiatric: Alert, Normal Affect, Normal Mood - Patient Data Lab Results Last 24 hrs: Laboratory Results - last 24 hr 06/17/18 06/17/18 06/17/18 Range/Units 15:41 15:41 15:41 WBC 7.2 (4.5-11.0) K/uL RBC 3.84 L (4.30-5.90) M/uL Hgb 11.4 L (12.0-15.0) g/dL Hct 36.1 L (40.0-54.0) % MCV 94 (80-98) fL MCH 30 (27-31) pg MCHC 32 (32-36) % Plt Count 272 (150-400) K/uL Neut % (Auto) 68 H (36-66) % Lymph % (Auto) 21 L (24-44) % [place] % (Auto) 8 H (2-6) % Eos % (Auto) 3 (2-4) % Baso % (Auto) 0 (0-1) % Sodium 143 (140-148) mmol/L Potassium 4.4 (3.6-5.2) mmol/L Chloride 109 H (100-108) mmol/L Carbon Dioxide 23 (21-32) mmol/L Anion Gap 15.4 H (5.0-14.0) mmol/L BUN 30 H D (7-18) mg/dL Creatinine 2.0 H (0.8-1.3) mg/dL Est Cr Clr Drug Dosing TNP Estimated GFR (MDRD) 32 L (>60) Glucose 114 H (74-106) mg/dL Lactic Acid 3.7 H (0.4-2.0) mmol/L Calcium 9.1 D (8.5-10.1) mg/dL Total Bilirubin 0.3 D (0.2-1.0) mg/dL AST 17 (15-37) U/L ALT 29 (12-78) U/L Alkaline Phosphatase 68 (46-116) U/L Troponin I < 0.017 (0.000-0.056) ng/mL Total Protein 5.9 L (6.4-8.2) g/dL Albumin 2.8 L (3.4-5.0) g/dL Globulin 3.1 (2.3-3.5) g/dL Albumin/Globulin Ratio 0.9 L (1.2-2.2) Amylase (25-115) U/L Lipase (73-393) U/L Urine Color Urine Appearance Urine pH (4.5-8.0) Ur Specific [place] (1.008-1.030) Urine Protein (NEGATIVE) mg/dL Urine Glucose (UA) (NEGATIVE) mg/dL Urine Ketones (NEGATIVE) mg/dL Urine Occult Blood (NEGATIVE) Urine Nitrite (NEGAITVE) Urine Bilirubin (NEGATIVE) Urine Urobilinogen (NORMAL) mg/dL Ur Leukocyte Esterase (NEGATIVE) Urine RBC (0-5) Urine WBC (0-5) Ur Epithelial Cells Amorphous Sediment Urine Bacteria Urine Mucus 06/17/18 06/17/18 Range/Units 17:49 18:50 WBC (4.5-11.0) K/uL RBC (4.30-5.90) M/uL Hgb (12.0-15.0) g/dL Hct (40.0-54.0) % MCV (80-98) fL MCH (27-31) pg MCHC (32-36) % Plt Count (150-400) K/uL Neut % (Auto) (36-66) % Lymph % (Auto) (24-44) % [place] % (Auto) (2-6) % Eos % (Auto) (2-4) % Baso % (Auto) (0-1) % Sodium (140-148) mmol/L Potassium (3.6-5.2) mmol/L Chloride (100-108) mmol/L Carbon Dioxide (21-32) mmol/L Anion Gap (5.0-14.0) mmol/L BUN (7-18) mg/dL Creatinine (0.8-1.3) mg/dL Est Cr Clr Drug Dosing Estimated GFR (MDRD) (>60) Glucose (74-106) mg/dL Lactic Acid (0.4-2.0) mmol/L Calcium (8.5-10.1) mg/dL Total Bilirubin (0.2-1.0) mg/dL AST (15-37) U/L ALT (12-78) U/L Alkaline Phosphatase (46-116) U/L Troponin I (0.000-0.056) ng/mL Total Protein (6.4-8.2) g/dL Albumin (3.4-5.0) g/dL Globulin (2.3-3.5) g/dL Albumin/Globulin Ratio (1.2-2.2) Amylase 54 (25-115) U/L Lipase 58 L (73-393) U/L Urine Color Yellow Urine Appearance Clear Urine pH 5.0 (4.5-8.0) Ur Specific [place] 1.020 (1.008-1.030) Urine Protein Negative (NEGATIVE) mg/dL Urine Glucose (UA) Normal (NEGATIVE) mg/dL Urine Ketones Negative (NEGATIVE) mg/dL Urine Occult Blood Negative (NEGATIVE) Urine Nitrite Negative (NEGAITVE) Urine Bilirubin Small (NEGATIVE) Urine Urobilinogen Normal (NORMAL) mg/dL Ur Leukocyte Esterase Negative (NEGATIVE) Urine RBC 0-5 (0-5) Urine WBC 0-5 (0-5) Ur Epithelial Cells Rare Amorphous Sediment Few Urine Bacteria Rare Urine Mucus Few Result Diagrams: 06/17/18 15:41 06/17/18 15:41 - Problem List (1) Dementia SNOMED Code(s): 12436688 ICD Code: F03.90 - UNSPECIFIED DEMENTIA WITHOUT BEHAVIORAL DISTURBANCE Status: Acute Priority: High Current Visit: Yes Qualifiers: Dementia behavioral disturbance: with behavioral disturbance (2) Hallucinations SNOMED Code(s): 7653194 ICD Code: R44.3 - HALLUCINATIONS, UNSPECIFIED Status: Acute Priority: High Current Visit: Yes (3) Weakness SNOMED Code(s): 75388360 ICD Code: R53.1 - WEAKNESS Status: Acute Priority: High Current Visit: Yes (4) Diabetes type 2, controlled SNOMED Code(s): 96275677 ICD Code: E11.9 - TYPE 2 DIABETES MELLITUS WITHOUT COMPLICATIONS Status: Acute Priority: Medium Current Visit: Yes Qualifiers: Diabetes mellitus burr filer insulin use: without burr filer use Diabetes mellitus complication detail: with diabetic retinopathy (5) Chronic kidney disease, stage 3 SNOMED Code(s): 685267800 ICD Code: N18.3 - CHRONIC KIDNEY DISEASE, STAGE 3 (MODERATE) Status: Acute Priority: High Current Visit: Yes Problem List Initiated/Reviewed/Updated: Yes Orders Last 24hrs: Active Orders 24 hr Category Date Time Status Patient Status [ADT] Routine ADT 06/17/18 19:24 Active Blood Glucose Check, Bedside [RC] BIDMEALS Care 06/17/18 19:24 Active Cardiac Monitoring [RC] CONTINUOUS Care 06/17/18 19:24 Active Intake and Output [RC] QSHIFT Care 06/17/18 19:24 Active Notify Provider Vital Signs [RC] ASDIRECTED Care 06/17/18 19:24 Active Oxygen Therapy [RC] PRN Care 06/17/18 19:24 Active Peripheral IV Care [RC] . DIRECTED Care 06/17/18 15:28 Active Pulse Oximetry [RC] PRN Care 06/17/18 19:24 Active RT Aerosol Therapy [RC] ASDIRECTED Care 06/17/18 19:24 Active Up With Assistance [RC] ASDIRECTED Care 06/17/18 19:24 Active VTE/DVT Education [RC] Per Unit Routine Care 06/17/18 19:24 Active Vital Signs [RC] Q4H Care 06/17/18 19:24 Active Regular Diet [DIET] Diet 06/17/18 Dinner Active Chest 1V Frontal [CR] Urgent Exams 06/17/18 15:27 Taken BASIC METABOLIC PANEL,BMP [CHEM] AM Lab 06/18/18 05:11 Ordered CBC WITH AUTO DIFF [HEME] AM Lab 06/18/18 05:11 Ordered Acetaminophen [Tylenol] Med 06/17/18 19:24 Active 650 mg PO Q4H PRN Albuterol [Proventil Neb Soln] Med 06/17/18 19:24 Active 2.5 mg NEB Q4H PRN Albuterol/Ipratropium [DuoNeb 3.0-0.5 MG/3 ML] Med 06/17/18 19:24 Active 3 ml NEB QID PRN Bisacodyl [Dulcolax] Med 06/17/18 19:24 Active 5 mg PO DAILY PRN Dextran 70/Hypromellose [Artificial Tears] Med 06/17/18 21:00 Active 1 drop EYEBOTH BID Docusate Sodium [Colace] Med 06/17/18 19:24 Active 100 mg PO BID PRN Docusate Sodium/Sennosides [Senna Plus] Med 06/18/18 09:00 Active 2 tab PO DAILY Enoxaparin [Lovenox] Med 06/18/18 09:00 Active 30 mg SUBCUT DAILY LORazepam [Ativan] Med 06/17/18 19:24 Active 1 mg IV Q6H PRN Lactated Ringers [Ringers, Lactated] 1,000 ml Med 06/17/18 15:30 Active IV ASDIRECTED Lactated Ringers [Ringers, Lactated] 1,000 ml Med 06/17/18 19:24 Active IV ASDIRECTED Melatonin Med 06/17/18 19:24 Active 6 mg PO BEDTIME PRN Menthol/Methyl Salicylate [Pain Relieving Rub Cream] Med 06/17/18 22:00 Active 1 applic TOP QID Morphine Med 06/17/18 19:24 Active 2 mg IVPUSH Q2H PRN OLANZapine [Olanzapine] Med 06/17/18 21:00 Active 2.5 mg PO BEDTIME Ondansetron [Zofran ODT] Med 06/17/18 19:24 Active 4 mg PO Q6H PRN Ondansetron [Zofran] Med 06/17/18 19:24 Active 4 mg IV Q4H PRN Pantoprazole [ProTONIX IV] Med 06/18/18 09:00 Active 40 mg IVPUSH DAILY Spironolactone [Aldactone] Med 06/18/18 09:00 Active 12.5 mg PO DAILY Sucralfate [Carafate] Med 06/17/18 22:00 Active 1 gm PO QID Terbinafine [LamISIL AT 1% Crm] Med 06/18/18 09:00 Active 1 applic TOP DAILY amLODIPine [Norvasc] Med 06/18/18 09:00 Active 10 mg PO DAILY oxyCODONE Med 06/17/18 19:24 Active 5 mg PO Q4H PRN Resuscitation Status Routine Resus Stat 06/17/18 19:12 Ordered Medication Orders Acetaminophen (Tylenol) 650 mg PO Q4H PRN PRN Reason: Pain (Mild 1-3)/fever Albuterol (Proventil Neb Soln) 2.5 mg NEB Q4H PRN PRN Reason: Shortness Of Breath/wheezing Albuterol/Ipratropium (Duoneb 3.0-0.5 Mg/3 Ml) 3 ml NEB QID PRN PRN Reason: Shortness Of Breath/wheezing Amlodipine Besylate (Norvasc) 10 mg PO DAILY ELLIOT Bisacodyl (Dulcolax) 5 mg PO DAILY PRN PRN Reason: Constipation Docusate Sodium (Colace) 100 mg PO BID PRN PRN Reason: Constipation Enoxaparin Sodium (Lovenox) 30 mg SUBCUT DAILY [facility] Lactated Ringer's (Ringers, Lactated) 1,000 mls @ 500 mls/hr IV ASDIRECTED ELLIOT Last Admin: 06/17/18 15:41 Dose: 125 mls/hr Lactated Ringer's (Ringers, Lactated) 1,000 mls @ 125 mls/hr IV ASDIRECTED ELLIOT Lorazepam (Ativan) 1 mg IV Q6H PRN PRN Reason: Nausea/Vomiting Melatonin (Melatonin) 6 mg PO BEDTIME PRN PRN Reason: Insomnia Morphine Sulfate (Morphine) 2 mg IVPUSH Q2H PRN PRN Reason: Pain (severe 7-10) Non-Formulary Medication (Dextran 70/Hypromellose [Artificial Tears]) 1 drop EYEBOTH BID ELLIOT Non-Formulary Medication (Menthol/Methyl Salicylate [Pain Relieving Rub Cream]) 1 applic TOP QID ELLIOT Non-Formulary Medication (Olanzapine [Olanzapine]) 2.5 mg PO BEDTIME ELLIOT Non-Formulary Medication (Terbinafine [Lamisil At 1% Crm]) 1 applic TOP DAILY ELLIOT Ondansetron HCl (Zofran Odt) 4 mg PO Q6H PRN PRN Reason: Nausea able to take PO Ondansetron HCl (Zofran) 4 mg IV Q4H PRN PRN Reason: Nausea/Vomiting Oxycodone HCl (Oxycodone) 5 mg PO Q4H PRN PRN Reason: Pain (moderate 4-6) Pantoprazole Sodium (Protonix Iv) 40 mg IVPUSH DAILY ELLIOT Senna/Docusate Sodium (Senna Plus) 2 tab PO DAILY ELLIOT Spironolactone (Aldactone) 12.5 mg PO DAILY ELLIOT Sucralfate (Carafate) 1 gm PO QID ELLIOT Assessment/Plan Comment:: ASSESSMENT / PLAN 88-year-old gentleman presents to the emergency department today with increasing weakness. Patient has known history of hypertension, atrial fibrillation diabetes mellitus type 2 as well as severe torticollis, was in the [facility] rehabilitation facility in [place] discharged to home on . Presents today with his spouse saying he has increasing weakness difficulty ambulating and she is unable to care for him at home. He has no specific complaints Lab values = hemoglobin low 11.4 consistent normochromic anemia, creatinine elevated at 2.0 consistent chronic renal failure stage G IIIB, lactic acid elevated at 3.7 of uncertain significance, troponin was negative albumin low at 2.8 consistent hypoalbuminemia Plan Called discussed case with hospitalist on-call they agreed to come and evaluate the patient emergency department for admission. Demenita with weakness and hallucination -Admit to [address] [place] [address] for further monitoring -IV Fluids for rehydration NS at 125 mL per hour -albuterol nebulizer every 4 hours as needed for wheezing and cough -Duo nebu ; prn nebulize every 6 hours -Advise to notify nurses of any chest pain or other symptoms -And a.m. labs: CBC, BMP, lactic acid at 22:00 and 0400 Chronic Kidney disease stage 3 -rehydrate with IV fluids -monitor I&O GERD, hx of Diverticulitis -Protonix 40mg IV daily Diabetes type 2, diet controlled -hold Metformin today -regular diet Maintenance issues -Orders home meds: ordered -Nutrition: regular diet -Mcclendon catheter not indicated at this time -DVT: SCD -PPI: IV Protonix 40mg daily -consult OT for discharge planning -consult PT for strengthening. CODE STATUS: DNR/DNI Admission status: Admit to [address] [place] [address] Admission justification. This patient will be admitted for inpatient services and is medically appropriate meeting medical necessity for inpatient admission as outlined in my documentation. I reasonably expect the patient will require inpatient services that span. Time over 2 midnights. I reasonably expect this patient to be discharged or transferred within 96 hours after admission to the critical access [facility]. Disposition;[facility] Primary care provider: Dr. Jackman Hospitalist: Dr. Toscano
[2018-06-17] MEDS: Lactated Ringers 1,000 ML IV SCH (20:25)
[2018-06-17] MEDS ORDERED: Non-Formulary Medication 1 Each (Dextran 70/Hypromellose [Artificial Tears] 1 DROP) EYEBOTH SCH (21:00)
[2018-06-17] MEDS ORDERED: OLANZAPINE 2.5 MG PO SCH (21:00)
[2018-06-17] MEDS: [UNRECOGNIZED DRUG - OTHER] TOP SCH (21:25)
[2018-06-17] MEDS: MENTHOL TOP SCH (21:25)
[2018-06-17] MEDS: METHYL SALICYLATE TOP SCH (21:25)
[2018-06-17] MEDS: Sucralfate 1 GM Tab PO SCH (21:45)
[2018-06-18] MEDS: METHYL SALICYLATE TOP SCH (06:06)
[2018-06-18] MEDS: [UNRECOGNIZED DRUG - OTHER] TOP SCH (06:06)
[2018-06-18] MEDS: MENTHOL TOP SCH (06:06)
[2018-06-18] MEDS: Sucralfate 1 GM Tab PO SCH ×5 (06:12→20:00)
--- NOTE | 2018-06-18 08:39 | CR ---
CHEST: Portable CLINICAL HISTORY:Weakness COMPARISON:2017 FINDINGS: Heart size and pulmonary vascularity are normal. There are atherosclerotic changes in the aorta.. Lung [place] are clear Impression: No acute cardio pulmonary process.
[2018-06-18] MEDS: Hypromellose 0.4% Ophth Soln 15 ML Bottle EYEBOTH SCH ×2 (08:59→20:36)
[2018-06-18] MEDS: amLODIPine 10 MG Tab PO SCH (08:59)
[2018-06-18] MEDS ORDERED: Pantoprazole 40 MG Vial IVPUSH SCH (09:00)
[2018-06-18] MEDS: Enoxaparin 30 MG/0.3 ML Syringe SUBCUT SCH (09:00)
[2018-06-18] MEDS: Spironolactone 25 MG Tab PO SCH (09:00)
[2018-06-18] MEDS: Menthol/Methyl Salicylate 85 GM Tube TOP SCH ×3 (09:18→21:45)
[2018-06-18] MEDS: TERBINAFINE TOP SCH (09:23)
[2018-06-18] MEDS: Lactated Ringers 1,000 ML IV SCH (12:48)
--- NOTE | 2018-06-18 15:16 | PCM.PN ---
- General Info Date of Service: 06/18/18 Subjective Update: Mr. Maya is a severely debilitated 88-year-old gentleman who was admitted through the emergency department last night. On initial assessment was felt to have dehydration resulting in acute exacerbation of his chronic kidney disease with creatinine elevated from baseline. Will evidence of underlying infection or other significant abnormalities were identified on evaluation. He reports he feels somewhat stronger today, appetite improved. Functional Status: Reports: Tolerating Diet, Urinating - Review of Systems General: Reports: Weakness. Denies: Fever, Chills Pulmonary: Reports: No Symptoms Cardiovascular: Reports: No Symptoms Gastrointestinal: Reports: No Symptoms - Patient Data Vitals - Most Recent: Last Vital Signs Temp 97.2 F 06/18/18 10:48 Pulse 79 06/18/18 10:48 Resp 16 06/18/18 10:48 BP 147/67 H 06/18/18 10:48 Pulse Ox 92 L 06/18/18 12:55 Weight - Most Recent: 182 lb 15.986 oz I&O - Last 24 Hours: Intake & Output 06/18/18 06/18/18 06/18/18 06:59 14:59 22:59 Intake Total 1067 600 Output Total 800 Balance 267 600 Lab Results Last 24 Hours: Laboratory Results - last 24 hr 06/17/18 06/17/18 06/17/18 Range/Units 15:41 15:41 15:41 WBC 7.2 (4.5-11.0) K/uL RBC 3.84 L (4.30-5.90) M/uL Hgb 11.4 L (12.0-15.0) g/dL Hct 36.1 L (40.0-54.0) % MCV 94 (80-98) fL MCH 30 (27-31) pg MCHC 32 (32-36) % Plt Count 272 (150-400) K/uL Neut % (Auto) 68 H (36-66) % Lymph % (Auto) 21 L (24-44) % [place] % (Auto) 8 H (2-6) % Eos % (Auto) 3 (2-4) % Baso % (Auto) 0 (0-1) % Sodium 143 (140-148) mmol/L Potassium 4.4 (3.6-5.2) mmol/L Chloride 109 H (100-108) mmol/L Carbon Dioxide 23 (21-32) mmol/L Anion Gap 15.4 H (5.0-14.0) mmol/L BUN 30 H D (7-18) mg/dL Creatinine 2.0 H (0.8-1.3) mg/dL Est Cr Clr Drug Dosing TNP Estimated GFR (MDRD) 32 L (>60) Glucose 114 H (74-106) mg/dL Lactic Acid 3.7 H (0.4-2.0) mmol/L Calcium 9.1 D (8.5-10.1) mg/dL Total Bilirubin 0.3 D (0.2-1.0) mg/dL AST 17 (15-37) U/L ALT 29 (12-78) U/L Alkaline Phosphatase 68 (46-116) U/L Troponin I < 0.017 (0.000-0.056) ng/mL Total Protein 5.9 L (6.4-8.2) g/dL Albumin 2.8 L (3.4-5.0) g/dL Globulin 3.1 (2.3-3.5) g/dL Albumin/Globulin Ratio 0.9 L (1.2-2.2) Amylase (25-115) U/L Lipase (73-393) U/L Urine Color Urine Appearance Urine pH (4.5-8.0) Ur Specific Cadet (1.008-1.030) Urine Protein (NEGATIVE) mg/dL Urine Glucose (UA) (NEGATIVE) mg/dL Urine Ketones (NEGATIVE) mg/dL Urine Occult Blood (NEGATIVE) Urine Nitrite (NEGAITVE) Urine Bilirubin (NEGATIVE) Urine Urobilinogen (NORMAL) mg/dL Ur Leukocyte Esterase (NEGATIVE) Urine RBC (0-5) Urine WBC (0-5) Ur Epithelial Cells Amorphous Sediment Urine Bacteria Urine Mucus 06/17/18 06/17/18 06/17/18 Range/Units 17:49 18:50 22:10 WBC (4.5-11.0) K/uL RBC (4.30-5.90) M/uL Hgb (12.0-15.0) g/dL Hct (40.0-54.0) % MCV (80-98) fL MCH (27-31) pg MCHC (32-36) % Plt Count (150-400) K/uL Neut % (Auto) (36-66) % Lymph % (Auto) (24-44) % [place] % (Auto) (2-6) % Eos % (Auto) (2-4) % Baso % (Auto) (0-1) % Sodium (140-148) mmol/L Potassium (3.6-5.2) mmol/L Chloride (100-108) mmol/L Carbon Dioxide (21-32) mmol/L Anion Gap (5.0-14.0) mmol/L BUN (7-18) mg/dL Creatinine (0.8-1.3) mg/dL Est Cr Clr Drug Dosing Estimated GFR (MDRD) (>60) Glucose (74-106) mg/dL Lactic Acid 1.2 (0.4-2.0) mmol/L Calcium (8.5-10.1) mg/dL Total Bilirubin (0.2-1.0) mg/dL AST (15-37) U/L ALT (12-78) U/L Alkaline Phosphatase (46-116) U/L Troponin I (0.000-0.056) ng/mL Total Protein (6.4-8.2) g/dL Albumin (3.4-5.0) g/dL Globulin (2.3-3.5) g/dL Albumin/Globulin Ratio (1.2-2.2) Amylase 54 (25-115) U/L Lipase 58 L (73-393) U/L Urine Color Yellow Urine Appearance Clear Urine pH 5.0 (4.5-8.0) Ur Specific Cadet 1.020 (1.008-1.030) Urine Protein Negative (NEGATIVE) mg/dL Urine Glucose (UA) Normal (NEGATIVE) mg/dL Urine Ketones Negative (NEGATIVE) mg/dL Urine Occult Blood Negative (NEGATIVE) Urine Nitrite Negative (NEGAITVE) Urine Bilirubin Small (NEGATIVE) Urine Urobilinogen Normal (NORMAL) mg/dL Ur Leukocyte Esterase Negative (NEGATIVE) Urine RBC 0-5 (0-5) Urine WBC 0-5 (0-5) Ur Epithelial Cells Rare Amorphous Sediment Few Urine Bacteria Rare Urine Mucus Few 06/18/18 06/18/18 06/18/18 Range/Units 04:20 04:20 04:20 WBC 6.4 (4.5-11.0) K/uL RBC 3.62 L (4.30-5.90) M/uL Hgb 10.9 L (12.0-15.0) g/dL Hct 33.6 L (40.0-54.0) % MCV 93 (80-98) fL MCH 30 (27-31) pg MCHC 32 (32-36) % Plt Count (150-400) K/uL Neut % (Auto) 70 H (36-66) % Lymph % (Auto) 21 L (24-44) % [place] % (Auto) 6 (2-6) % Eos % (Auto) 3 (2-4) % Baso % (Auto) 0 (0-1) % Sodium 142 (140-148) mmol/L Potassium 4.8 (3.6-5.2) mmol/L Chloride 107 (100-108) mmol/L Carbon Dioxide 26 (21-32) mmol/L Anion Gap 9.1 (5.0-14.0) mmol/L BUN 25 H (7-18) mg/dL Creatinine 1.5 H (0.8-1.3) mg/dL Est Cr Clr Drug Dosing 30.14 Estimated GFR (MDRD) 44 L (>60) Glucose 131 H (74-106) mg/dL Lactic Acid 1.3 (0.4-2.0) mmol/L Calcium 8.6 (8.5-10.1) mg/dL Total Bilirubin (0.2-1.0) mg/dL AST (15-37) U/L ALT (12-78) U/L Alkaline Phosphatase (46-116) U/L Troponin I (0.000-0.056) ng/mL Total Protein (6.4-8.2) g/dL Albumin (3.4-5.0) g/dL Globulin (2.3-3.5) g/dL Albumin/Globulin Ratio (1.2-2.2) Amylase (25-115) U/L Lipase (73-393) U/L Urine Color Urine Appearance Urine pH (4.5-8.0) Ur Specific Cadet (1.008-1.030) Urine Protein (NEGATIVE) mg/dL Urine Glucose (UA) (NEGATIVE) mg/dL Urine Ketones (NEGATIVE) mg/dL Urine Occult Blood (NEGATIVE) Urine Nitrite (NEGAITVE) Urine Bilirubin (NEGATIVE) Urine Urobilinogen (NORMAL) mg/dL Ur Leukocyte Esterase (NEGATIVE) Urine RBC (0-5) Urine WBC (0-5) Ur Epithelial Cells Amorphous Sediment Urine Bacteria Urine Mucus Med Orders - Current: Current Medications Acetaminophen (Tylenol) 650 mg PO Q4H PRN PRN Reason: Pain (Mild 1-3)/fever Albuterol (Proventil Neb Soln) 2.5 mg NEB Q4H PRN PRN Reason: Shortness Of Breath/wheezing Albuterol/Ipratropium (Duoneb 3.0-0.5 Mg/3 Ml) 3 ml NEB QID PRN PRN Reason: Shortness Of Breath/wheezing Amlodipine Besylate (Norvasc) 10 mg PO DAILY [facility] Last Admin: 06/18/18 08:59 Dose: 10 mg Artificial Tears (Natural Balance Tears) 0 ml EYEBOTH BID [facility] Last Admin: 06/18/18 08:59 Dose: 1 drop Bisacodyl (Dulcolax) 5 mg PO DAILY PRN PRN Reason: Constipation Docusate Sodium (Colace) 100 mg PO BID PRN PRN Reason: Constipation Enoxaparin Sodium (Lovenox) 30 mg SUBCUT DAILY [facility] Last Admin: 06/18/18 09:00 Dose: 30 mg Melatonin (Melatonin) 6 mg PO BEDTIME PRN PRN Reason: Insomnia Methyl Salicylate (Icy Hot Cream) 0 gm TOP QID [facility] Last Admin: 06/18/18 09:18 Dose: 1 applic Non-Formulary Medication (Terbinafine [Lamisil At 1% Crm]) 1 applic TOP DAILY [facility] Last Admin: 06/18/18 09:23 Dose: Not Given Olanzapine (Zyprexa) 2.5 mg PO BEDTIME [facility] Ondansetron HCl (Zofran Odt) 4 mg PO Q6H PRN PRN Reason: Nausea able to take PO Ondansetron HCl (Zofran) 4 mg IV Q4H PRN PRN Reason: Nausea/Vomiting Oxycodone HCl (Oxycodone) 5 mg PO Q4H PRN PRN Reason: Pain (moderate 4-6) Senna/Docusate Sodium (Senna Plus) 2 tab PO DAILY [facility] Last Admin: 06/18/18 08:59 Dose: 2 tab Spironolactone (Aldactone) 12.5 mg PO DAILY [facility] Last Admin: 06/18/18 09:00 Dose: 12.5 mg Sucralfate (Carafate) 1 gm PO QIDACANDBED [facility] Last Admin: 06/18/18 11:45 Dose: 1 gm Discontinued Medications Lactated Ringer's (Ringers, Lactated) 1,000 mls @ 500 mls/hr IV ASDIRECTED [facility] Last Admin: 06/17/18 15:41 Dose: 125 mls/hr Lactated Ringer's (Ringers, Lactated) 1,000 mls @ 125 mls/hr IV ASDIRECTED [facility] Last Admin: 06/18/18 12:48 Dose: 125 mls/hr Lidocaine HCl (Xylocaine 2% Jelly) Confirm Administered Dose 10 ml .ROUTE .STK- MED ONE Stop: 06/17/18 17:25 Last Admin: 06/17/18 23:50 Dose: Not Given Lidocaine HCl (Xylocaine 2% Jelly) 10 ml MUCMEM ONETIME ONE Stop: 06/17/18 17:01 Last Admin: 06/17/18 17:23 Dose: 10 ml Lorazepam (Ativan) 1 mg IV Q6H PRN PRN Reason: Nausea/Vomiting Morphine Sulfate (Morphine) 2 mg IVPUSH Q2H PRN PRN Reason: Pain (severe 7-10) Non-Formulary Medication (Dextran 70/Hypromellose [Artificial Tears]) 1 drop EYEBOTH BID [facility] Last Admin: 06/17/18 21:05 Dose: Not Given Non-Formulary Medication (Menthol/Methyl Salicylate [Pain Relieving Rub Cream]) 1 applic TOP QID [facility] Last Admin: 06/18/18 06:06 Dose: Not Given Non-Formulary Medication (Olanzapine [Olanzapine]) 2.5 mg PO BEDTIME [facility] Last Admin: 06/17/18 21:25 Dose: Not Given Pantoprazole Sodium (Protonix Iv) 40 mg IVPUSH DAILY [facility] Last Admin: 06/18/18 09:00 Dose: 40 mg Sodium Chloride (Saline Flush) 10 ml FLUSH ASDIRECTED PRN PRN Reason: Keep Vein Open Last Admin: 06/17/18 15:42 Dose: 10 ml Sucralfate (Carafate) 1 gm PO QID [facility] Last Admin: 06/18/18 06:12 Dose: Not Given - Exam Quality Assessment: DVT Prophylaxis General: Alert, Cooperative, No Acute Distress Lungs: Clear to Auscultation, Normal Respiratory Effort Cardiovascular: Regular Rate, Regular Rhythm, No Murmurs GI/Abdominal Exam: Soft, Non-Tender, No Organomegaly, No Distention Extremities: Non-Tender, No Pedal Edema - Problem List Review Problem List Initiated/Reviewed/Updated: Yes - My Orders Last 24 Hours: My Active Orders 06/18/18 15:10 Convert IV to Saline Lock [OM.PC] Routine - Plan Plan:: ASSESSMENT / PLAN Demenita with weakness and hallucination, somewhat stronger and more coherent this morning -Saline lock IV -albuterol nebulizer every 4 hours as needed for wheezing and cough Chronic Kidney disease stage 3- acute on chronic exacerbation secondary to dehydration. Renal function this morning improved following IV fluids overnight -monitor I&O GERD, hx of Diverticulitis Diabetes type 2, diet controlled -hold Metformin -regular diet Maintenance issues -Orders home meds: ordered -Nutrition: regular diet -Ball catheter not indicated at this time -DVT: SCD -PPI: IV Protonix 40mg daily -consult OT for discharge planning -consult PT for strengthening. CODE STATUS: DNR/DNI Admission status: Admit to [address] [place] [address] Admission justification. This patient will be admitted for inpatient services and is medically appropriate meeting medical necessity for inpatient admission as outlined in my documentation. I reasonably expect the patient will require inpatient services that span. Time over 2 midnights. I reasonably expect this patient to be discharged or transferred within 96 hours after admission to the critical access hospital. Disposition;[facility] Team Member Care Primary care provider: Dr. Jackman Hospitalist: Dr. Tsocano
[2018-06-18] MEDS: OLANZapine 5 MG Tab PO SCH (20:35)
[2018-06-19] MEDS ORDERED: LORazepam 2 MG/ML SDV IVPUSH PRN (02:29)
[2018-06-19] MEDS: Menthol/Methyl Salicylate 85 GM Tube TOP SCH ×4 (07:26→21:04)
[2018-06-19] MEDS: Sucralfate 1 GM Tab PO SCH ×4 (08:23→20:56)
[2018-06-19] MEDS: Spironolactone 25 MG Tab PO SCH (08:24)
[2018-06-19] MEDS: amLODIPine 10 MG Tab PO SCH (08:24)
[2018-06-19] MEDS: Enoxaparin 30 MG/0.3 ML Syringe SUBCUT SCH (08:24)
[2018-06-19] MEDS: Hypromellose 0.4% Ophth Soln 15 ML Bottle EYEBOTH SCH ×2 (08:24→20:57)
[2018-06-19] MEDS: TERBINAFINE TOP SCH (08:25)
[2018-06-19] MEDS ORDERED: Melatonin 3 MG Tab PO PRN (12:41)
[2018-06-19] MEDS ORDERED: Haloperidol Lactate 5 MG/ML SDV IVPUSH PRN (12:41)
[2018-06-19] MEDS: Divalproex Sodium Delayed-Release 250 MG Tab.CR PO SCH (16:37)
--- NOTE | 2018-06-19 17:21 | PCM.PN ---
- General Info Date of Service: 06/19/18 Subjective Update: Mr. Maya has been stable since yesterday, he has been noted to have intermittent episodes of agitation and confusion. - Review of Systems General: Reports: Weakness. Denies: Fever, Chills Pulmonary: Reports: No Symptoms Cardiovascular: Reports: No Symptoms Gastrointestinal: Reports: No Symptoms Psychiatric: Reports: Confusion, Agitation - Patient Data Vitals - Most Recent: Last Vital Signs Temp 98.8 F 06/19/18 15:35 Pulse 70 06/19/18 15:35 Resp 14 06/19/18 15:35 BP 134/75 06/19/18 15:35 Pulse Ox 99 06/19/18 15:35 Weight - Most Recent: 182 lb 15.986 oz I&O - Last 24 Hours: Intake & Output 06/19/18 06/19/18 06/19/18 06:59 14:59 22:59 Output Total 1325 800 Balance -1325 -800 Med Orders - Current: Current Medications Acetaminophen (Tylenol) 650 mg PO Q4H PRN PRN Reason: Pain (Mild 1-3)/fever Albuterol (Proventil Neb Soln) 2.5 mg NEB Q4H PRN PRN Reason: Shortness Of Breath/wheezing Albuterol/Ipratropium (Duoneb 3.0-0.5 Mg/3 Ml) 3 ml NEB QID PRN PRN Reason: Shortness Of Breath/wheezing Amlodipine Besylate (Norvasc) 10 mg PO DAILY [facility] Last Admin: 06/19/18 08:24 Dose: 10 mg Artificial Tears (Natural Balance Tears) 0 ml EYEBOTH BID [facility] Last Admin: 06/19/18 08:24 Dose: 1 drop Bisacodyl (Dulcolax) 5 mg PO DAILY PRN PRN Reason: Constipation Divalproex Sodium (Divalproex Sodium) 250 mg PO BIDMEALS [facility] Last Admin: 06/19/18 16:37 Dose: 250 mg Docusate Sodium (Colace) 100 mg PO BID PRN PRN Reason: Constipation Enoxaparin Sodium (Lovenox) 30 mg SUBCUT DAILY [facility] Last Admin: 06/19/18 08:24 Dose: 30 mg Haloperidol Lactate (Haldol) 1 mg IVPUSH Q2H PRN PRN Reason: Agitation Melatonin (Melatonin) 9 mg PO BEDTIME PRN PRN Reason: Insomnia Methyl Salicylate (Icy Hot Cream) 0 gm TOP QID [facility] Last Admin: 06/19/18 16:38 Dose: 1 applic Non-Formulary Medication (Terbinafine [Lamisil At 1% Crm]) 1 applic TOP DAILY [facility] Last Admin: 06/19/18 08:25 Dose: Not Given Olanzapine (Zyprexa) 2.5 mg PO BEDTIME [facility] Last Admin: 06/18/18 20:35 Dose: 2.5 mg Ondansetron HCl (Zofran Odt) 4 mg PO Q6H PRN PRN Reason: Nausea able to take PO Ondansetron HCl (Zofran) 4 mg IV Q4H PRN PRN Reason: Nausea/Vomiting Oxycodone HCl (Oxycodone) 5 mg PO Q4H PRN PRN Reason: Pain (moderate 4-6) Senna/Docusate Sodium (Senna Plus) 2 tab PO DAILY [facility] Last Admin: 06/19/18 08:25 Dose: 2 tab Spironolactone (Aldactone) 12.5 mg PO DAILY [facility] Last Admin: 06/19/18 08:24 Dose: 12.5 mg Sucralfate (Carafate) 1 gm PO QIDACANDBED [facility] Last Admin: 06/19/18 16:37 Dose: 1 gm Discontinued Medications Lactated Ringer's (Ringers, Lactated) 1,000 mls @ 500 mls/hr IV ASDIRECTED [facility] Last Admin: 06/17/18 15:41 Dose: 125 mls/hr Lactated Ringer's (Ringers, Lactated) 1,000 mls @ 125 mls/hr IV ASDIRECTED [facility] Last Admin: 06/18/18 12:48 Dose: 125 mls/hr Lidocaine HCl (Xylocaine 2% Jelly) Confirm Administered Dose 10 ml .ROUTE .STK- MED ONE Stop: 06/17/18 17:25 Last Admin: 06/17/18 23:50 Dose: Not Given Lidocaine HCl (Xylocaine 2% Jelly) 10 ml MUCMEM ONETIME ONE Stop: 06/17/18 17:01 Last Admin: 06/17/18 17:23 Dose: 10 ml Lorazepam (Ativan) 1 mg IV Q6H PRN PRN Reason: Nausea/Vomiting Lorazepam (Ativan) 0.5 mg IVPUSH Q2H PRN PRN Reason: Insomnia Last Admin: 06/19/18 02:44 Dose: 0.5 mg Melatonin (Melatonin) 6 mg PO BEDTIME PRN PRN Reason: Insomnia Last Admin: 06/18/18 23:31 Dose: 6 mg Morphine Sulfate (Morphine) 2 mg IVPUSH Q2H PRN PRN Reason: Pain (severe 7-10) Non-Formulary Medication (Dextran 70/Hypromellose [Artificial Tears]) 1 drop EYEBOTH BID [facility] Last Admin: 06/17/18 21:05 Dose: Not Given Non-Formulary Medication (Menthol/Methyl Salicylate [Pain Relieving Rub Cream]) 1 applic TOP QID [facility] Last Admin: 06/18/18 06:06 Dose: Not Given Non-Formulary Medication (Olanzapine [Olanzapine]) 2.5 mg PO BEDTIME [facility] Last Admin: 06/17/18 21:25 Dose: Not Given Pantoprazole Sodium (Protonix Iv) 40 mg IVPUSH DAILY [facility] Last Admin: 06/18/18 09:00 Dose: 40 mg Sodium Chloride (Saline Flush) 10 ml FLUSH ASDIRECTED PRN PRN Reason: Keep Vein Open Last Admin: 06/17/18 15:42 Dose: 10 ml Sucralfate (Carafate) 1 gm PO QID [facility] Last Admin: 06/18/18 06:12 Dose: Not Given - Exam Quality Assessment: DVT Prophylaxis General: Alert, Cooperative, No Acute Distress Lungs: Clear to Auscultation, Normal Respiratory Effort Cardiovascular: Regular Rate, Regular Rhythm, No Murmurs GI/Abdominal Exam: Soft, Non-Tender, No Organomegaly, No Distention Extremities: Non-Tender, No Pedal Edema - Problem List Review Problem List Initiated/Reviewed/Updated: Yes - My Orders Last 24 Hours: My Active Orders 06/19/18 12:41 Haloperidol Lactate [Haldol] 1 mg IVPUSH Q2H PRN Melatonin 9 mg PO BEDTIME PRN 06/19/18 17:00 Divalproex Sodium 250 mg PO BIDMEALS - Plan Plan:: ASSESSMENT / PLAN Demenita with weakness and hallucination-the last 24 hours has had intermittent confusion and agitation -Melatonin 9 mg by mouth daily at bedtime -Depakote 250 mg by mouth twice daily -Haldol 1 mg IV every 2 hours when necessary -albuterol nebulizer every 4 hours as needed for wheezing and cough Chronic Kidney disease stage 3 -monitor I&O GERD, hx of Diverticulitis Diabetes type 2, diet controlled -regular diet Maintenance issues -Orders home meds: ordered -Nutrition: regular diet -Ball catheter not indicated at this time -DVT: SCD -PPI: IV Protonix 40mg daily -consult OT for discharge planning -consult PT for strengthening. CODE STATUS: DNR/DNI Admission status: Admit to [address] [place] [address] Admission justification. This patient will be admitted for inpatient services and is medically appropriate meeting medical necessity for inpatient admission as outlined in my documentation. I reasonably expect the patient will require inpatient services that span. Time over 2 midnights. I reasonably expect this patient to be discharged or transferred within 96 hours after admission to the [facility]. Disposition;Detention Care Primary care provider: Dr. Jackman Hospitalist: Dr. Toscano
[2018-06-19] MEDS: OLANZapine 5 MG Tab PO SCH (20:57)
[2018-06-20] MEDS: Menthol/Methyl Salicylate 85 GM Tube TOP SCH ×2 (06:19→09:14)
[2018-06-20] MEDS: Divalproex Sodium Delayed-Release 250 MG Tab.CR PO SCH (08:16)
[2018-06-20] MEDS: Sucralfate 1 GM Tab PO SCH ×2 (08:17→11:36)
[2018-06-20] MEDS: amLODIPine 10 MG Tab PO SCH (09:15)
[2018-06-20] MEDS: Enoxaparin 30 MG/0.3 ML Syringe SUBCUT SCH (09:15)
[2018-06-20] MEDS: Spironolactone 25 MG Tab PO SCH (09:16)
[2018-06-20] MEDS: Hypromellose 0.4% Ophth Soln 15 ML Bottle EYEBOTH SCH (09:16)
[2018-06-20] MEDS: TERBINAFINE TOP SCH (09:17)
[2018-06-20 10:38] VITALS: BP 119/55
--- NOTE | 2018-06-20 11:27 | PCM.DCSUM1 ---
Discharge Summary - Hospital Course Brief History: Mr. Maya is an 88-year-old gentleman who is admitted through the emergency department with weakness and dehydration secondary to multiple underlying medical problems. - Discharge Data Discharge Date: 06/20/18 Discharge Disposition: DC/Tfer to SNF 03 Condition: Fair - Discharge Diagnosis/Problem(s) (1) Weakness SNOMED Code(s): 92623137 ICD Code: R53.1 - WEAKNESS Status: Acute Priority: High Current Visit: Yes (2) Dementia SNOMED Code(s): 25892475 ICD Code: F03.90 - UNSPECIFIED DEMENTIA WITHOUT BEHAVIORAL DISTURBANCE Status: Chronic Priority: High Current Visit: Yes Qualifiers: Dementia behavioral disturbance: with behavioral disturbance (3) Diabetes type 2, controlled SNOMED Code(s): 44419989 ICD Code: E11.9 - TYPE 2 DIABETES MELLITUS WITHOUT COMPLICATIONS Status: Chronic Priority: Medium Current Visit: Yes Qualifiers: Diabetes mellitus intermediate insulin use: without intermediate school teacher use Diabetes mellitus complication detail: with diabetic retinopathy (4) Chronic kidney disease, stage 3 SNOMED Code(s): 743058684 ICD Code: N18.3 - CHRONIC KIDNEY DISEASE, STAGE 3 (MODERATE) Status: Chronic Priority: High Current Visit: Yes (5) History of atrial fibrillation SNOMED Code(s): 004577822 ICD Code: Z86.79 - PERSONAL HISTORY OF OTHER DISEASES OF THE CIRCULATORY SYSTEM Status: Chronic Current Visit: No (6) CHF (congestive heart failure) SNOMED Code(s): 93737147 ICD Code: I50.9 - HEART FAILURE, UNSPECIFIED Status: Chronic Current Visit: No (7) Obstructive uropathy SNOMED Code(s): 0836298 ICD Code: N13.9 - OBSTRUCTIVE AND REFLUX UROPATHY, UNSPECIFIED Status: Acute Current Visit: Yes - Patient Summary/Data Consults: Consultations 06/17/18 20:45 Consult to Physical Therapy [PT Evaluation and Treatment] [CONS] Routine Please Evaluate and Treat. PT Reason for Consult: Strengthening This query below is only for informational purposes and is not editable. Admission Diagnosis/Problem: Dementia OT Evaluation and Treatment [CONS] Routine Please Evaluate and Treat. OT Reason for Consult: Discharge Planning This query below is only for informational purposes and is not editable. Admission Diagnosis/Problem: Dementia Hospital Course: 88-year-old gentleman presents to the emergency department today with increasing weakness. Patient has known history of hypertension, atrial fibrillation diabetes mellitus type 2 as well as severe torticollis, was in the [facility] rehabilitation facility in [place] discharged to home on . Presents today with his spouse saying he has increasing weakness difficulty ambulating and she is unable to care for him at home. On evaluation he was felt to have obstructive uropathy with significant urinary retention and a Ball catheter was placed in the emergency department. He was also found to be dehydrated with acute on chronic renal insufficiency and creatinine elevated from baseline. He was admitted to the hospital and given IV fluids for hydration, with this intervention renal function did improve to baseline. He was seen daily by physical therapy while in the hospital. Ball catheter was left in place during hospitalization because of his obstructive uropathy and will be left in place at the time of discharge because of significant urinary retention noted on admission. He will be discharged to the detention and will receive daily restorative physical therapy and occupational therapy. Activity will be as tolerated and he will resume his usual diet. Metformin for his diabetes was discontinued during hospitalization because of lower blood sugars. - Patient Instructions Diet: Heart Healthy Diet, Diabetic Diet Activity: As Tolerated Other/Special Instructions: Daily physical therapy and occupational therapy while at the detention. - Discharge Plan *PRESCRIPTION DRUG MONITORING PROGRAM REVIEWED*: Not Applicable *COPY OF PRESCRIPTION DRUG MONITORING REPORT IN PATIENT SHERWIN: Not Applicable Prescriptions/Med Rec: Divalproex Sodium 250 mg PO BIDMEALS #60 tab.cr Melatonin 9 mg PO BEDTIME PRN #90 tablet PRN Reason: Insomnia Home Medications: Home Meds Multivitamin [Multi-Vitamin Daily] 1 tab PO DAILY 12/04/14 [History] Sucralfate [Carafate] 1,000 mg PO QID 12/04/14 [History] Ferrous Sulfate [Feosol] 325 mg PO DAILY 01/31/17 [History] Omeprazole 20 mg PO DAILY 01/31/17 [History] Spironolactone [Aldactone] 12.5 mg PO DAILY 01/31/17 [History] amLODIPine [Norvasc] 10 mg PO DAILY 01/31/17 [History] atorvaSTATin [Lipitor] 80 mg PO ONETIME 01/31/17 [History] Aspirin [Ecotrin] 1 tab PO DAILY 08/09/17 [History] Menthol/Methyl Salicylate [Pain Relieving Rub Cream] 1 applic TOP QID 08/09/17 [ History] Acetaminophen 325 mg PO BID PRN 06/17/18 [History] Dextran 70/Hypromellose [Artificial Tears] 1 drop EYEBOTH BID 06/17/18 [History] Mometasone Furoate [Nasonex] 2 spray VESTA BID 06/17/18 [History] Sennosides/Docusate Sodium [Sennosides-Docusate Sodium] 2 tab PO DAILY 06/17/18 [History] Terbinafine [LamISIL AT 1% Crm] 1 applic TOP DAILY 06/17/18 [History] Divalproex Sodium 250 mg PO BIDMEALS #60 tab.cr 06/20/18 [Rx] Melatonin 9 mg PO BEDTIME PRN #90 tablet 06/20/18 [Rx] Referrals: Jimy Jackman MD [Primary Care Provider] - - Discharge Summary/Plan Comment DC Time >30 min.: No - Patient Data Vitals - Most Recent: Last Vital Signs Temp 98.1 F 06/20/18 10:35 Pulse 61 06/20/18 10:35 Resp 18 06/20/18 10:35 BP 119/55 L 06/20/18 10:35 Pulse Ox 93 L 06/20/18 10:35 Weight - Most Recent: 182 lb 15.986 oz I&O - Last 24 hours: Intake & Output 06/19/18 06/20/18 06/20/18 22:59 06:59 14:59 Intake Total 100 150 120 Output Total 800 550 Balance -700 -400 120 Med Orders - Current: Current Medications Acetaminophen (Tylenol) 650 mg PO Q4H PRN PRN Reason: Pain (Mild 1-3)/fever Albuterol (Proventil Neb Soln) 2.5 mg NEB Q4H PRN PRN Reason: Shortness Of Breath/wheezing Albuterol/Ipratropium (Duoneb 3.0-0.5 Mg/3 Ml) 3 ml NEB QID PRN PRN Reason: Shortness Of Breath/wheezing Amlodipine Besylate (Norvasc) 10 mg PO DAILY [facility] Last Admin: 06/20/18 09:15 Dose: 10 mg Artificial Tears (Natural Balance Tears) 0 ml EYEBOTH BID [facility] Last Admin: 06/20/18 09:16 Dose: 1 drop Bisacodyl (Dulcolax) 5 mg PO DAILY PRN PRN Reason: Constipation Divalproex Sodium (Divalproex Sodium) 250 mg PO BIDMEALS [facility] Last Admin: 06/20/18 08:16 Dose: 250 mg Docusate Sodium (Colace) 100 mg PO BID PRN PRN Reason: Constipation Enoxaparin Sodium (Lovenox) 30 mg SUBCUT DAILY [facility] Last Admin: 06/20/18 09:15 Dose: 30 mg Haloperidol Lactate (Haldol) 1 mg IVPUSH Q2H PRN PRN Reason: Agitation Last Admin: 06/19/18 20:58 Dose: 1 mg Melatonin (Melatonin) 9 mg PO BEDTIME PRN PRN Reason: Insomnia Last Admin: 06/19/18 20:56 Dose: 9 mg Methyl Salicylate (Icy Hot Cream) 0 gm TOP QID [facility] Last Admin: 06/20/18 09:14 Dose: 1 applic Non-Formulary Medication (Terbinafine [Lamisil At 1% Crm]) 1 applic TOP DAILY [facility] Last Admin: 06/20/18 09:17 Dose: Not Given Olanzapine (Zyprexa) 2.5 mg PO BEDTIME [facility] Last Admin: 06/19/18 20:57 Dose: 2.5 mg Ondansetron HCl (Zofran Odt) 4 mg PO Q6H PRN PRN Reason: Nausea able to take PO Ondansetron HCl (Zofran) 4 mg IV Q4H PRN PRN Reason: Nausea/Vomiting Oxycodone HCl (Oxycodone) 5 mg PO Q4H PRN PRN Reason: Pain (moderate 4-6) Senna/Docusate Sodium (Senna Plus) 2 tab PO DAILY [facility] Last Admin: 06/20/18 09:16 Dose: 2 tab Spironolactone (Aldactone) 12.5 mg PO DAILY [facility] Last Admin: 06/20/18 09:16 Dose: 12.5 mg Sucralfate (Carafate) 1 gm PO QIDACANDBED [facility] Last Admin: 06/20/18 08:17 Dose: 1 gm Discontinued Medications Lactated Ringer's (Ringers, Lactated) 1,000 mls @ 500 mls/hr IV ASDIRECTED [facility] Last Admin: 06/17/18 15:41 Dose: 125 mls/hr Lactated Ringer's (Ringers, Lactated) 1,000 mls @ 125 mls/hr IV ASDIRECTED [facility] Last Admin: 06/18/18 12:48 Dose: 125 mls/hr Lidocaine HCl (Xylocaine 2% Jelly) Confirm Administered Dose 10 ml .ROUTE .STK- MED ONE Stop: 06/17/18 17:25 Last Admin: 06/17/18 23:50 Dose: Not Given Lidocaine HCl (Xylocaine 2% Jelly) 10 ml MUCMEM ONETIME ONE Stop: 06/17/18 17:01 Last Admin: 06/17/18 17:23 Dose: 10 ml Lorazepam (Ativan) 1 mg IV Q6H PRN PRN Reason: Nausea/Vomiting Lorazepam (Ativan) 0.5 mg IVPUSH Q2H PRN PRN Reason: Insomnia Last Admin: 06/19/18 02:44 Dose: 0.5 mg Melatonin (Melatonin) 6 mg PO BEDTIME PRN PRN Reason: Insomnia Last Admin: 06/18/18 23:31 Dose: 6 mg Morphine Sulfate (Morphine) 2 mg IVPUSH Q2H PRN PRN Reason: Pain (severe 7-10) Non-Formulary Medication (Dextran 70/Hypromellose [Artificial Tears]) 1 drop EYEBOTH BID [facility] Last Admin: 06/17/18 21:05 Dose: Not Given Non-Formulary Medication (Menthol/Methyl Salicylate [Pain Relieving Rub Cream]) 1 applic TOP QID [facility] Last Admin: 06/18/18 06:06 Dose: Not Given Non-Formulary Medication (Olanzapine [Olanzapine]) 2.5 mg PO BEDTIME [facility] Last Admin: 06/17/18 21:25 Dose: Not Given Pantoprazole Sodium (Protonix Iv) 40 mg IVPUSH DAILY [facility] Last Admin: 06/18/18 09:00 Dose: 40 mg Sodium Chloride (Saline Flush) 10 ml FLUSH ASDIRECTED PRN PRN Reason: Keep Vein Open Last Admin: 06/17/18 15:42 Dose: 10 ml Sucralfate (Carafate) 1 gm PO QID [facility] Last Admin: 06/18/18 06:12 Dose: Not Given - Exam Quality Assessment: Reports: DVT Prophylaxis General: Reports: Alert, Cooperative, No Acute Distress Lungs: Reports: Clear to Auscultation, Normal Respiratory Effort Cardiovascular: Reports: Regular Rate, Regular Rhythm, No Murmurs GI/Abdominal Exam: Soft, Non-Tender, No Organomegaly, No Distention
== END 2018-06-20 14:30 | DRG 948 ==
LOC: JP.ED 13:55 → JP.MS 19:12
PROVIDERS: ADMIT Hospitalist; ATTEND Hospitalist
DX: R53.1 Weakness (principal); I13.0 Hypertensive heart and chronic kidney disease with heart failure and stage 1 through stage 4 chronic kidney disease, or unspecified chronic kidney disease; N13.8 Other obstructive and reflux uropathy; Z66 Do not resuscitate; R44.1 Visual hallucinations; E11.22 Type 2 diabetes mellitus with diabetic chronic kidney disease; E11.42 Type 2 diabetes mellitus with diabetic polyneuropathy; N17.9 Acute kidney failure, unspecified; I50.9 Heart failure, unspecified; E86.0 Dehydration; Z79.84 Long term (current) use of oral hypoglycemic drugs; Z86.73 Personal history of transient ischemic attack (TIA), and cerebral infarction without residual deficits; F03.90 Unspecified dementia, unspecified severity, without behavioral disturbance, psychotic disturbance, mood disturbance, and anxiety; N18.3 Chronic kidney disease, stage 3 (moderate); Z79.82 Long term (current) use of aspirin; N40.1 Benign prostatic hyperplasia with lower urinary tract symptoms; R33.8 Other retention of urine; Z85.46 Personal history of malignant neoplasm of prostate; Z86.79 Personal history of other diseases of the circulatory system; M54.9 Dorsalgia, unspecified; G89.29 Other chronic pain; K21.9 Gastro-esophageal reflux disease without esophagitis; H91.90 Unspecified hearing loss, unspecified ear; Z88.1 Allergy status to other antibiotic agents; Z87.11 Personal history of peptic ulcer disease; Z87.19 Personal history of other diseases of the digestive system; M43.6 Torticollis
CPT/HCPCS: 36415; 71045 ×2; 80053; 81001; 82150; 83605; 83690; 84484; 85025; 96360; 96361; 99285; J7050; J7120; 80048; 82962; 97110-GO; 97162-GP; 97166-GO; A9270-GY; C9113; J1630; J1650; J2060